=== PATIENT | female | born 2000 | race Caucasian/White ===

== ENCOUNTER 2023-02-04 09:04 | Emergency (ER) | payer OTHER, SELFPAY ==
--- NOTE | 2023-02-04 09:00 | RT.EKG_ITS ---
APPROVED REPORT Exam: Resting ECG Reason for Exam: chest pain Patient Location: E HR:79 bpm ECG Measurements Heart Rate 79 AXIS AL 128 P 59 QRSd 88 QRS 83 QT 365 T 68 QTc 420 Conclusion Sinus rhythm...normal P axis, V-rate 60- 99 Nonspecific T abnrm, anterolateral leads...T <-0.10mV, I aVL V2-V6
[2023-02-04 09:08] VITALS: BP 138/75; PULSE 98; RESP 18; TEMP 36.1; O2SAT 99
--- NOTE | 2023-02-04 09:19 | ED.GENADUL_ITS ---
Discharge Plan Disposition Patient Disposition: Home Condition: Stable Discharge Details Clinical Impression: Chest pain, COVID Primary Care Provider: Deedee Conway ED Provider: Bill Lam Home Meds and New Rx's Prescriptions: Continued prenat.vits,sylvia,[id number] Tablet 1 tab PO DAILY Discharge Instructions Instructions: Chest Pain (ED) Additional Instructions: Your blood work did not show concerning findings, you are positive for covid follow up with your primary care provider if pain continues and also continue routing obgyn visits if you feel more ill, have severe worsening pain or difficulty breathing return to the emergency department current cdc guidelines recommend isolating for 5 days if you are positive for covid without symptoms. Stand Alone Forms: Work Release Medical Decision Making 22 yo female g1 at approximately 6 weeks comes in with chief complaint of chest pressure and dyspnea since yesterday. Denies any fevers, chills, n/v, abdominal pain. She denies diaphoresis, radiation of pain and pain with exertion. She arrives stable speaking in full sentences in no distress. She has clear lungs, no murmurs, no leg swelling or calf tenderness. She does note she has history of anxiety and feels mildly anxious now. She denies smoking, alcohol or drug use, states quit everything a year ago, used to use marijuana but none recently. Suspect anxiety vs chest wall pain. No tachycardia, hypoxia or evidence of dvt on exam so doubt pe. No tearing back pain and normal periphreal vascular exam so doubt dissection. Will check troponin but heart score is 0 so unlikely acs. Clear lungs and no pleuritic pain so doubt ptx and no cough or fever so do not feel xray indicated. pt stable, blood work unremarkable including troponin and she's had symptoms more then 3 hours so do not feel delta troponin indicated. She is positive for covid, had it in November and she states she is fully vaccinated. Bedside u/s shows no ptx bilaterally and also reassuring cardiac u/s, no pericardial effusion, normal appearing EF. She is stable for d/c, advised to f/u with pcp/obgyn and return precautions given Differential Diagnosis Differential Diagnosis: anxiety, costochondritis, pe Lab Data Lab results reviewed: Yes I reviewed the patient's lab results. ECG Data Attestation: I personally reviewed and interpreted this ECG (s) as follows: Prior ECG tracings: not available for review Interpretation: sinus rythm, rate of 79, pr 128, no acute ischemic findings HPI General Mode of arrival: ambulatory . Date/Time Provider Initiated Documentation: 02/04/23 09:08 . Limitations to Documentation: no limitations . Information obtained by: patient . History of Present Illness 22 year old F presents to the emergency department with the chief complaint of shortness of breath, described as moderate, Patient started experiencing this day(s) (1) and it has been constant. No relieving factors improve symptom(s), No exacerbating factors reported . Patient notes chest pain. Patient did receive the following treatments prior to arrival, none Related Data Home Medications Medication Instructions Recorded Confirmed prenat.vits,sylvia,[id number] 1 tab PO DAILY 01/29/23 02/04/23 Allergies Allergy/AdvReac Type Severity Reaction Status Date / Time No Known Allergies Allergy Verified 02/04/23 09:10 General Stated Complaint: Chest Pain DIEGO: 3 Review of Systems All systems reviewed & are unremarkable except as noted in HPI and below Constitutional Constitutional: Denies chills, Denies fever(s) and Denies weakness ENT Ears, Nose, Mouth, and Throat: Denies change in voice Respiratory Respiratory: Denies cough Gastrointestinal Gastrointestinal: Denies abdominal pain, Denies nausea and Denies vomiting Genitourinary Genitourinary: Denies dysuria Musculoskeletal Musculoskeletal: Denies joint swelling Integumentary/Breasts Skin/Breast: Denies rash Neurologic Neurologic: Denies weakness PFSH All Active Problems (Updated 02/04/23 @ 10:43 by Bill Lam MD) Chest pain (Acute) COVID (Acute) (Acute) Anxiety (Chronic) Depression (Chronic) Missed menses (Acute) Medical History (Updated 02/04/23 @ 10:43 by Bill Lam MD) Eating disorder Social History (Updated 01/29/23 @ 15:08 by Kerry Mojica CNM) Smoking/Tobacco Use Status: Former Tobacco Use Smoking risk assessment performed?: Yes Alcohol Intake: former Substance use type: marijuana Do you feel safe at home: Yes Do you feel safe in your relationship?: Yes Exam Const General: no acute distress Orientation: alert HENMT Head: normal to inspection Ears: external ears normal General nose exam: external nose normal Mouth: moist mucous membranes Eyes General: appearance normal, both eyes and all related structures Neck Neck: normal visual inspection Resp Effort & Inspection: normal respiratory effort and able to speak in complete sentences Auscultation: clear to auscultation bilaterally Cardio Rate: regular rate Heart Sounds: no murmurs Skin General skin exam: no rashes or lesions noted Neuro General: patient alert and patient oriented x3 Extrem General: normal to inspection, full ROM, no calf tenderness bilaterally and no edema Psych Mental Status: mental status grossly normal Course Vital Signs Vital signs: Vital Signs Temperature 36.1 C L 02/04/23 09:08 Pulse 98 H 02/04/23 09:08 Respiratory Rate 18 02/04/23 09:08 Blood Pressure 138/75 02/04/23 09:08 Pulse Oximetry 99 02/04/23 09:08 Temperature 36.1 C L 02/04/23 09:08 Temperature Source Tympanic 02/04/23 09:08 Pulse 98 H 02/04/23 09:08 Respiratory Rate 18 02/04/23 09:08 Respiratory Effort Normal, Non-Labored 02/04/23 09:09 Blood Pressure 138/75 02/04/23 09:08 Pulse Oximetry 99 02/04/23 09:08 Oxygen Delivery Method Room Air 02/04/23 09:08 Oxygen Flow Rate 0 02/04/23 09:08 POCUS Exam (ED) Limited Cardiac Exam DATE OF EXAM: 02/04/23 TIME OF EXAM: 10:38 PROVIDER THAT PERFORMED THE STUDY: Bill Lam IS THIS A REPEAT EXAM DURING THIS ENCOUNTER: no REASON FOR EXAM: Chest pain VISUALIZED STRUCTURES: Four Chambers VIEW OBTAINED: Subxiphoid PERTINENT FINDINGS/IMPRESSION: No LV dysfunction, No pericardial effusion and No RV dilation Exam complete
[2023-02-04 09:40] LABS: Abs Immature Grans 0.02 10^3/uL (0.0-0.06); Absolute Basophil Count 0.03 10^3/uL (0.0-0.2); Absolute Eosinophil Count 0.07 10^3/uL (0.0-0.7); Absolute Lymphocyte Count 2.37 10^3/uL (1.2-3.4); Absolute Monocyte Count 0.74 10^3/uL (0.1-0.8); Absolute Neutrophil Count 5.71 10^3/uL (1.2-6.7); Basophils % 0.3; Eosinophils % 0.8; HCT 40.8 % (36.0-46.0); HGB 14.1 g/dL (11.2-15.7); Immature Grans % 0.2; Lymphocytes % 26.5; MCH 31.1 pg (27.0-33.0); MCHC 34.6 % (32.0-36.0); MCV 90 fL (80-95); MPV 8.8 fL (8.0-11.0); Monocytes % 8.3; Neutrophils % 63.9; Platelet Count 299 10^3/uL (130-400); RBC 4.54 10^6/uL (3.93-5.22); RDW 12.6 % (11.7-14.6); RDW-SD 41.5 fL; WBC 8.94 10^3/uL (4.4-10.8)
[2023-02-04 09:58] LABS: ALT 21 U/L (14-59); AST 18 U/L (15-37); Albumin 4.1 g/dL (3.4-5.0); Alkaline Phosphatase 85 U/L (46-116); Anion Gap 6.3 mmol/L (3-11); BUN 12 mg/dL (7-18); Bilirubin, Total 0.5 mg/dL (0.2-1.0); CO2 26.7 mmol/L (21.0-32.0); CREATININE 0.6 mg/dL (0.55-1.02); Calcium 8.8 mg/dL (8.5-10.1); Chloride 103 mmol/L (98-107); Estimated GFR 129.27 (mL/min/1.73m2); Glucose 89 mg/dL (74-106); Potassium 4.1 mmol/L (3.5-5.1); Sodium 136 mmol/L (136-145); Troponin I < 50 ng/L (<or=60)
[2023-02-04 10:17] LABS: Influenza A PCR Negative (Negative); Influenza B PCR Negative (Negative); RSV PCR Negative (Negative)
[2023-02-04 10:20] LABS: COVID-19 PCR Positive (Negative); Source Nasopharynx
[2023-02-04 10:45] VITALS: RESP 18
[2023-02-04 10:46] VITALS: BP 112/74; PULSE 92; RESP 18; O2SAT 98
== END 2023-02-04 10:46 | disposition home or self-care (01) ==
PROVIDERS: Emergency Provider Emergency Medicine; PCP Physician Assistant
DX: U07.1 COVID-19 (principal); R07.89 Other chest pain; R06.02 Shortness of breath
CPT/HCPCS: 80053; 87637; 93005; 93308; 99283; 84484; 85025; 93010

== ENCOUNTER 2023-03-12 01:23 | Outpatient (CLI) | payer OTHER, SELFPAY ==
[2023-03-12 17:14] LABS: Panorama Kit Sent via Fed Ex
[2023-03-12 17:33] LABS: Abs Immature Grans 0.08 10^3/uL (0.0-0.06); Absolute Eosinophil Count 0.07 10^3/uL (0.0-0.7); Absolute Lymphocyte Count 2.58 10^3/uL (1.2-3.4); Absolute Monocyte Count 0.94 10^3/uL (0.1-0.8); Absolute Neutrophil Count 10.71 10^3/uL (1.2-6.7); Basophils % 0.3; Eosinophils % 0.5; HCT 36.9 % (36.0-46.0); HGB 12.7 g/dL (11.2-15.7); Immature Grans % 0.6; Lymphocytes % 17.9; MCH 31.7 pg (27.0-33.0); MCHC 34.4 % (32.0-36.0); MCV 92 fL (80-95); MPV 9.4 fL (8.0-11.0); Monocytes % 6.5; Neutrophils % 74.2; Platelet Count 317 10^3/uL (130-400); RBC 4.01 10^6/uL (3.93-5.22); RDW 13.9 % (11.7-14.6); RDW-SD 47.4 fL; WBC 14.43 10^3/uL (4.4-10.8)
[2023-03-12 17:34] LABS: Absolute Basophil Count 0.04 10^3/uL (0.0-0.2)
[2023-03-14 09:39] LABS: Hepatitis B Surface Ag Negative (Negative)
[2023-03-14 10:07] LABS: HIV-1/2 Ag & Ab Screen Negative (Negative)
[2023-03-14 10:37] LABS: Hepatitis C Ab w Rflx HCV PCR Negative (Negative)
[2023-03-14 11:35] LABS: Varicella IgG Antibody Negative (See Note)
[2023-03-14 11:38] LABS: Rubella IgG Ab (UVM) Negative (See Note)
[2023-03-15 12:53] LABS: Syphilis IgG w/Reflex Nonreactive (Nonreactive)
== END 2023-03-12 01:24 | disposition home or self-care (01) ==
LOC: LBO 01:23
PROVIDERS: PCP Physician Assistant; Visit Provider Advanced Practice Midwife
DX: Z34.91 Encounter for supervision of normal pregnancy, unspecified, first trimester (principal); Z3A.11 11 weeks gestation of pregnancy
CPT/HCPCS: 36415; 86787; 86803; 86850; 86900; 86901; 87340; 87389; 85025; 86762; 86780

== ENCOUNTER 2023-03-12 16:27 | Outpatient (REF) | payer OTHER, SELFPAY ==
--- NOTE | 2023-03-12 15:30 | PAPFT_PTH ---
PATIENT: Florinda Leon LOC: [facility] U#:[id number] AGE/SX: 22/F ROOM: RE03/12/[address]: Kerry Mojica : 2000 BED: DIS: 03/12/2023 SPEC #: [id number] RECD: 03/12/23 18:12 STATUS: MARY BETH REQ #: [id number] VIVEK: 03/12/23 15:[address]: Kerry Mojica DEPT: [facility] Cytology RECD BY: Tonya Ramírez ENTERED: 03/12/23 18:12 SP TYPE: PAPFT OTHR DR: Deedee Conway Tissues: 1 - CX/ENDOCX FOR PAP SMEARS Procedures: PAP THIN PREP/UVM Screening Comments: [id number]
[2023-03-14 13:21] LABS: Chlamydia Result Negative (Negative); GC Result Negative (Negative)
== END 2023-03-12 16:28 | disposition home or self-care (01) ==
LOC: LBN 16:27
PROVIDERS: PCP Physician Assistant; Visit Provider Advanced Practice Midwife
DX: O26.891 Other specified pregnancy related conditions, first trimester (principal); N89.8 Other specified noninflammatory disorders of vagina; Z11.3 Encounter for screening for infections with a predominantly sexual mode of transmission; Z12.4 Encounter for screening for malignant neoplasm of cervix; Z3A.11 11 weeks gestation of pregnancy; R87.612 Low grade squamous intraepithelial lesion on cytologic smear of cervix (LGSIL)
CPT/HCPCS: 87491; 87591; 88142; 87086; 87480; 87510; 87660

== ENCOUNTER 2023-03-26 15:40 | Outpatient (REF) | payer OTHER, SELFPAY ==
[2023-03-28 13:44] LABS: Chlamydia Result Negative (Negative); GC Result Negative (Negative)
== END 2023-03-26 15:41 | disposition home or self-care (01) ==
LOC: LBN 15:40
PROVIDERS: PCP Physician Assistant; Visit Provider Advanced Practice Midwife
DX: Z34.91 Encounter for supervision of normal pregnancy, unspecified, first trimester (principal); Z3A.13 13 weeks gestation of pregnancy; Z11.3 Encounter for screening for infections with a predominantly sexual mode of transmission
CPT/HCPCS: 87491; 87591; 87480; 87510; 87660

== ENCOUNTER 2023-04-15 09:52 | Emergency (ER) | payer OTHER, SELFPAY ==
[2023-04-15 09:58] VITALS: BP 116/78; PULSE 80; RESP 18; TEMP 36.8; O2SAT 100
[2023-04-15] MEDS: Lactated Ringers 1,000 ML 1000 ML IV (10:23)
[2023-04-15] MEDS: Acetaminophen 325 MG TAB 650 MG PO (10:23)
[2023-04-15 10:34] LABS: Abs Immature Grans 0.07 10^3/uL (0.0-0.06); Absolute Eosinophil Count 0.19 10^3/uL (0.0-0.7); Absolute Neutrophil Count 11.78 10^3/uL (1.2-6.7); Basophils % 0.4; Eosinophils % 1.3; HGB 13.3 g/dL (11.2-15.7); Immature Grans % 0.5; Lymphocytes % 8.8; MCH 32.3 pg (27.0-33.0); MCHC 34.1 % (32.0-36.0); MCV 95 fL (80-95); MPV 9.5 fL (8.0-11.0); Monocytes % 6.3; Neutrophils % 82.7; Platelet Count 309 10^3/uL (130-400); RBC 4.12 10^6/uL (3.93-5.22); RDW 13.9 % (11.7-14.6); RDW-SD 48.2 fL; WBC 14.24 10^3/uL (4.4-10.8)
[2023-04-15 10:35] LABS: Bilirubin Negative (Negative); Blood Negative (Negative); Clarity Clear (Clear); Glucose Negative (Negative); Ketones Negative (Negative); Leukocyte Esterase Negative (Negative); Nitrite Negative (Negative); Specific Gravity 1.025 (1.005-1.025); Urobilinogen 0.2 mg/dL (Up to 0.2); pH 5.5 (5-8)
[2023-04-15 10:43] LABS: ALT 23 U/L (14-59); AST 22 U/L (15-37); Albumin 3.3 g/dL (3.4-5.0); Alkaline Phosphatase 69 U/L (46-116); Anion Gap 8.1 mmol/L (3-11); BUN 10 mg/dL (7-18); Bilirubin, Total 0.4 mg/dL (0.2-1.0); CO2 27.9 mmol/L (21.0-32.0); CREATININE 0.6 mg/dL (0.55-1.02); Calcium 8.7 mg/dL (8.5-10.1); Chloride 102 mmol/L (98-107); Estimated GFR 129.27 (mL/min/1.73m2); Glucose 89 mg/dL (74-106); Potassium 3.8 mmol/L (3.5-5.1); Sodium 138 mmol/L (136-145)
[2023-04-15 11:10] LABS: Absolute Basophil Count 0.06 10^3/uL (0.0-0.2); Absolute Lymphocyte Count 1.25 10^3/uL (1.2-3.4)
--- NOTE | 2023-04-15 11:36 | ED.GENADUL_ITS ---
Discharge Plan Disposition Patient Disposition: Home Discharge Details Clinical Impression: Acute left lower quadrant pain Primary Care Provider: Deedee Conway ED Provider: Tonya Benedict Home Meds and New Rx's Prescriptions: Continued prenat.vits,sylvia,[id number] Tablet 1 tab PO DAILY Discharge Instructions Instructions: Abdominal Pain (ED) Additional Instructions: Take Tylenol 500 to 650 mg every 6 hours, warm compresses Follow-up for ultrasound on Sunday Should you develop fever, chills, dramatic change or worsening of pain, please return to the emergency department for reassessment Please follow-up with your OB on Sunday Stand Alone Forms: Work Release Referrals: Deedee Conway [Primary Care Provider] - Medical Decision Making Patient presents for left lower quadrant abdominal pain in the presence of , 16 weeks heart rate 155 Urinalysis not show acute abnormality, patient not in significant distress White count of 14,000, unchanged from her February CBC Suspect round ligament pain, but unable to exclude other etiologies at this time, an ultrasound is not available on the therefore I did call [facility], Dr. Delgado, her recommendation is to order an outpatient ultrasound for Sunday and refer her back to [facility] for reassessment at that time We did discuss strict return precautions and need to return immediately should she develop worsening pain, fever, chills, or with any new or progressing symptoms She will take Tylenol and apply warm compresses Discharged home in stable condition with stable vitals, work note supplied for 3 days HPI General Date/Time Provider Initiated Documentation: 04/15/23 09:56 . HPI Narrative: This 22-year-old female presents 16 weeks with report of left lower quadrant pain since 7:00 last evening. Denies known trauma or vaginal bleeding. States she had an uneventful , she is G1, P0. Sexually active and monogamous, denies any risk of sexually transmitted disease. Denies any urinary symptoms. States her pain is worsened with movement of her left lower leg and walking. Denies history of abdominal surgeries in the past. Denies any vaginal discharge. Related Data Home Medications Medication Instructions Recorded Confirmed prenat.vits,sylvia,[id number] 1 tab PO DAILY 01/29/23 03/26/23 Allergies Allergy/AdvReac Type Severity Reaction Status Date / Time No Known Allergies Allergy Verified 04/10/23 10:10 General Stated Complaint: Abd Prob DIEGO: 3 PFSH All Active Problems (Updated 04/15/23 @ 11:38 by MELISSA Herron) Acute left lower quadrant pain (Acute) Threatened (Acute) LGSIL on Pap smear of cervix (Acute) Maternal varicella, non-immune (Acute) Rubella non-immune status, antepartum (Acute) Vaginal discharge (Acute) Tobacco dependence (Acute) vaping COVID (Acute) (Acute) Anxiety (Chronic) Depression (Chronic) venlafaxine Missed menses (Acute) Medical History (Updated 04/15/23 @ 11:38 by MELISSA Herron) Eating disorder Family History (Updated 03/12/23 @ 15:29 by Kerry Mojica CNM) Father Diabetes Enlarged liver Depression Sister Thyroid disease Social History (Updated 01/29/23 @ 15:08 by Kerry Mojica CNM) Smoking/Tobacco Use Status: Former Tobacco Use Smoking risk assessment performed?: Yes Alcohol Intake: former Drug use: Occasionally Substance use type: marijuana Do you feel safe at home: Yes Do you feel safe in your relationship?: Yes History History 2 1 Para Hx # Term Pregnancies 0 Multiple births Hx # Pregnancies Ectopic pregnancies AB induced Hx Number of Living Children 0 AB spontaneous Exam Narrative Exam Narrative: Patient calm and cooperative, lungs clear to auscultation, cardiac rate rhythm regular, tenderness to palpation in the left lower quadrant, just adjacent to her left hip bone, no pallor, alert and oriented x4, no peripheral edema Course Vital Signs Vital signs: Vital Signs Temperature 36.8 C 04/15/23 09:58 Pulse 80 04/15/23 09:58 Respiratory Rate 18 04/15/23 09:58 Blood Pressure 116/78 04/15/23 09:58 Pulse Oximetry 100 04/15/23 09:58 Temperature 36.8 C 04/15/23 09:58 Temperature Source Oral 04/15/23 09:58 Pulse 80 04/15/23 09:58 Respiratory Rate 18 04/15/23 09:58 Respiratory Effort Normal, Non-Labored 04/15/23 10:01 Blood Pressure 116/78 04/15/23 09:58 Pulse Oximetry 100 04/15/23 09:58 Pain Level 6 04/15/23 09:58 Lab/Test Results Lab/Test Results: Laboratory Tests Range/Units 04/15/23 04/15/23 04/15/23 10:09 10:20 10:20 WBC (4.4-10.8) 10^3/uL 14.24 H RBC (3.93-5.22) 10^6/uL 4.12 Hgb (11.2-15.7) g/dL 13.3 Hct (36.0-46.0) % 39.0 MCV (80-95) fL 95 MCH (27.0-33.0) pg 32.3 MCHC (32.0-36.0) % 34.1 RDW (11.7-14.6) % 13.9 Plt Count (130-400) 10^3/uL 309 MPV (8.0-11.0) fL 9.5 Immature Gran % 0.5 Neutrophils % 82.7 Lymphocytes % 8.8 Monocytes % 6.3 Eosinophils % 1.3 Basophils % 0.4 Nucleated RBC % (0.0-0.3) % 0.0 Absolute Neutrophils (1.2-6.7) 10^3/uL 11.78 H Absolute Lymphocytes (1.2-3.4) 10^3/uL 1.25 Absolute Monocytes (0.1-0.8) 10^3/uL 0.90 H Absolute Eosinophils (0.0-0.7) 10^3/uL 0.19 Absolute Basophils (0.0-0.2) 10^3/uL 0.06 Sodium (136-145) mmol/L 138 Potassium (3.5-5.1) mmol/L 3.8 Chloride (98-107) mmol/L 102 Carbon Dioxide (21.0-32.0) mmol/L 27.9 Anion Gap (3-11) mmol/L 8.1 BUN (7-18) mg/dL 10 Creatinine (0.55-1.02) mg/dL 0.6 Est GFR (CKD-EPI 2020) (mL/min/1.73m2) 129.27 Glucose (74-106) mg/dL 89 Calcium (8.5-10.1) mg/dL 8.7 Total Bilirubin (0.2-1.0) mg/dL 0.4 AST (15-37) U/L 22 ALT (14-59) U/L 23 Alkaline Phosphatase (46-116) U/L 69 Total Protein (6.4-8.2) g/dL 7.0 Albumin (3.4-5.0) g/dL 3.3 L Urine Color (Yellow) Yellow Urine Clarity (Clear) Clear Urine pH (5-8) 5.5 Ur Specific [place] (1.005-1.025) 1.025 Urine Protein (Negative) mg/dL Negative Urine Ketones (Negative) mg/dL Negative Urine Blood (Negative) Negative Urine Nitrite (Negative) Negative Urine Bilirubin (Negative) Negative Urine Urobilinogen (Up to 0.2) mg/dL 0.2 Ur Leukocyte Esterase (Negative) Negative Urine Glucose (Negative) mg/dL Negative
--- NOTE | 2023-04-15 12:36 | NUR.NOTE ---
Nursing Note:Faxed to DI request for US pelvic/OB: left lower quadrant pain. FOllow up w/OB. To be done April 17.
== END 2023-04-15 12:29 | disposition home or self-care (01) ==
PROVIDERS: Emergency Provider Physician Assistant; PCP Physician Assistant
DX: R10.32 Left lower quadrant pain (principal); Z33.1 Pregnant state, incidental
CPT/HCPCS: 80053; 96360; 99284; 81003; 85025; 99283

== ENCOUNTER 2023-04-19 03:28 | Outpatient (CLI) | payer OTHER, SELFPAY ==
--- NOTE | 2023-04-19 08:15 | DI.US_ITS ---
Exam(s) US OB ADONAY WEIGHT EXAM: US OB ADONAY WEIGHT CLINICAL HISTORY: follow up Ed visit for left lower quad pain,R10.32. TECHNIQUE: Transabdominal obstetrical ultrasound was performed. COMPARISON: US POCUS EXAM from 02/19/2023 FINDINGS: There is a single viable intrauterine gestation with cardiac activity identified-153 bpm The fetus is presently in variable position . Amniotic fluid: There is a normal amount of amniotic fluid with an ADONAY of 19.1cm. Placental location: The placenta is anterior grade 1,and is noted to be low lying placenta. Distance from tip of placenta to the internal cervical os is 0.7 cm on today's study. Dating parameters place this at approximately 17 weeks and 3 days gestational age, implying ANEAT of September 24, 2023. BPD measures 17 weeks and 3 days HC measures 17 weeks and 5 days AC measures 17 weeks and 6 days FL measures 16 weeks and 5 days Estimated weight is 190 gm-0 pounds, 7 ounces Fetus is at the 88th percentile on the Hadlock scale. MATERNAL OVARIES: Left ovary measures 2 x 1.5 x 2.2 cm and appears unremarkable. Right maternal ovar y was not seen on today's study. IMPRESSION:: Viable intrauterine gestation, as described above. Anterior placenta is low lying as described above. DATA REPOSITORY:
== END 2023-04-19 03:48 ==
LOC: DI 03:29
PROVIDERS: PCP Physician Assistant; Visit Provider Advanced Practice Midwife
DX: R10.32 Left lower quadrant pain (principal); Z34.92 Encounter for supervision of normal pregnancy, unspecified, second trimester
CPT/HCPCS: 76816

== ENCOUNTER 2023-05-10 12:52 | Outpatient (CLI) | payer OTHER, MEDICAID, SELFPAY ==
[2023-05-10 12:41] VITALS: BP 110/66; PULSE 77; RESP 18
[2023-05-10 12:42] VITALS: BP 110/66; PULSE 77; RESP 16; TEMP 37
== END 2023-05-10 13:15 | disposition home or self-care (01) ==
PROVIDERS: PCP Physician Assistant; Visit Provider Advanced Practice Midwife
DX: O34.32 Maternal care for cervical incompetence, second trimester (principal)
CPT/HCPCS: G0378

== ENCOUNTER 2023-05-13 21:22 | Outpatient (CLI) | payer OTHER, MEDICAID, SELFPAY ==
[2023-05-13 22:30] VITALS: BP 100/56; PULSE 61; TEMP 36.7
[2023-05-13 23:16] LABS: HCT 35.5 % (36.0-46.0); HGB 12.2 g/dL (11.2-15.7); MCH 33.2 pg (27.0-33.0); MCHC 34.4 % (32.0-36.0); MCV 97 fL (80-95); MPV 9.6 fL (8.0-11.0); Platelet Count 251 10^3/uL (130-400); RBC 3.68 10^6/uL (3.93-5.22); RDW 13.4 % (11.7-14.6); RDW-SD 47.9 fL; WBC 13.61 10^3/uL (4.4-10.8)
--- NOTE | 2023-05-14 02:40 | W.OBNST ---
Date of service: 05/14/23 Time of Service: 02:41 NST Evaluation Reason for NST Reasons for Nonstress Test: OTHER, SEE COMMENT (increased vaginal discharge after short cerclage 05/11/23.) Gestational Age Gestational Age in Weeks and Days: 19 Weeks and 4Days Vital Signs Blood Pressure: 100/56 Pulse: 61 Temperature: 98.1 F NST Information Date on Monitor: 05/13/23 Time on Monitor: 22:45 Date off Monitor: 05/13/23 Time off Monitor: 23:30 Total Time on Monitor: 45 NST Interventions: None Contraction Frequency: none Comments: Pt placed on monitor to assess FHR. No evidence of uterine contractions. NST Evaluation Patient States Movement: Present FHR Baseline: 150 NST Results Other: Gestational age too early for interpretation of FHR tracing. Note Ultrasound Done: N/A. NST Note Note: Pt called to report increased vaginal discharge beginning the morning of 05/13/23. Mucus w/o carolynn blood on peripad. No contractions, no focal pelvic pain. + Acetaminophen. On sterile speculum exam cervix closed. Cerclage stitch in place. Mucus collected and tested for ferning. Initial inspection of slide with copious WBC and w/o evidence of ferning. The specimen was reexamined 2hrs after initial inspection and ferning present. WBC 13.6. Pt had been discharged to home with instructions to f/u in office 05/15/23. She was given instructions regarding s/s of infection and to call office in event of gush of fluid or regular uterine contractions. NST Reviewed and Verified by: Valery Marin
[2023-05-14 02:53] VITALS: BP 100/56; PULSE 61; TEMP 36.7
== END 2023-05-13 23:20 | disposition home or self-care (01) ==
LOC: BCD 21:29 → OBS 21:41
PROVIDERS: PCP Physician Assistant; Visit Provider Obstetrics & Gynecology Gynecology
DX: O34.32 Maternal care for cervical incompetence, second trimester (principal); Z3A.19 19 weeks gestation of pregnancy
CPT/HCPCS: 36415; 85027; 59025; G0378

== ENCOUNTER 2023-06-07 14:19 | Outpatient (REF) | payer OTHER, SELFPAY | END 2023-06-07 14:20 | disposition home or self-care (01) | LOC: LBN 14:19 | PROVIDERS: PCP Physician Assistant; Visit Provider Advanced Practice Midwife | DX: O99.891 Other specified diseases and conditions complicating pregnancy (principal); N89.8 Other specified noninflammatory disorders of vagina; Z3A.00 Weeks of gestation of pregnancy not specified | CPT/HCPCS: 87086; 87480; 87510; 87660 ==

== ENCOUNTER 2023-07-13 01:32 | Outpatient (CLI) | payer OTHER, MEDICAID, SELFPAY ==
[2023-07-13 11:19] LABS: HCT 37.4 % (36.0-46.0); HGB 12.6 g/dL (11.2-15.7); MCH 32.8 pg (27.0-33.0); MCHC 33.7 % (32.0-36.0); MCV 97 fL (80-95); MPV 10.1 fL (8.0-11.0); Platelet Count 257 10^3/uL (130-400); RBC 3.84 10^6/uL (3.93-5.22); RDW 13.4 % (11.7-14.6); RDW-SD 47.4 fL; WBC 15.82 10^3/uL (4.4-10.8)
[2023-07-13 11:32] LABS: Glucose,1 Hr (Glucola) 114 mg/dL (80-140)
[2023-07-13 11:36] LABS: Absolute Eosinophil Count 0.16 10^3/uL (0.0-0.7); Absolute Lymphocyte Count 1.58 10^3/uL (1.2-3.4); Absolute Monocyte Count 1.27 10^3/uL (0.1-0.8); Absolute Neutrophil Count 12.34 10^3/uL (1.2-6.7); Atypical Lymphocytes % 1
[2023-07-13 11:37] LABS: Diff Comment Manual Differential; Metamyelocytes % 1; Myelocytes % 2; RBC Morphology Normal
== END 2023-07-13 01:33 | disposition home or self-care (01) ==
LOC: LBO 01:32
PROVIDERS: PCP Physician Assistant; Visit Provider Obstetrics & Gynecology
DX: Z34.93 Encounter for supervision of normal pregnancy, unspecified, third trimester (principal); Z3A.28 28 weeks gestation of pregnancy
CPT/HCPCS: 36415; 82950; 85025

== ENCOUNTER 2023-07-24 11:20 | Outpatient (CLI) | payer OTHER, MEDICAID, SELFPAY ==
[2023-07-24 11:50] VITALS: BP 117/64; PULSE 78; TEMP 36.2
[2023-07-24 11:54] VITALS: BP 117/64; PULSE 78
[2023-07-24 12:20] LABS: Bilirubin Negative (Negative); Blood Negative (Negative); Clarity Clear (Clear); Glucose Negative (Negative); Ketones Negative (Negative); Leukocyte Esterase Negative (Negative); Nitrite Negative (Negative); Urobilinogen 0.2 mg/dL (Up to 0.2); pH 6.5 (5-8)
[2023-07-24 12:49] LABS: Fetal Fibronectin Negative (Negative)
[2023-07-24] MEDS: Acetaminophen 325 MG TAB 650 MG PO (13:14)
[2023-07-24] MEDS: metroNIDAZOLE 500 MG TAB PO (14:50)
--- NOTE | 2023-07-24 16:37 | W.OBCONSULT ---
Date of service: 07/24/23 Time of Service: 16:37 Assessment and Plan Assessment and plan (1) contractions: Status: Acute Assessment and plan: Contractions decreased over >3hrs of observation. A heating pad and tylenol worked well for her back pain. She had +BV and was treated with a first dose of metronidazole and sent a script for the completion of the course. She was given strict instructions to call if she has increasing pain like that again because this could end up being labor and we would like to have time to send her to [facility] for delivery at this early gestation. Communication was made with GRABIEL Marquez at [facility], about her situation and the plan. (2) Cervical incompetence during in second trimester: Status: Acute Assessment and plan: Routine visit scheduled on Sunday with f/u sono for low-lying placenta. History of Present Illness Narrative: Pt says she has been having bad back pain for 3 days as well as some abdominal pains. There is no regular pattern to it. Today is worse. She is trying to stay hydrated. She has not done anything particularly strenuous. She is feeling good movement and denies bleeding or LOF. She does think she may have had an increase in discharge lately though. It is yellowish now instead of white. She says there is an odor but it's been that way for a while. She has slight discomfort with urination. Review of Systems Constitutional Constitutional: Reports system reviewed and no additional complaints, except as documented Gastrointestinal Gastrointestinal: Denies nausea and Denies vomiting Genitourinary Genitourinary: Reports system reviewed and no additional complaints, except as documented Musculoskeletal Comments: No regular contractions PFSH All Active Problems (Updated 07/24/23 @ 16:47 by Karen Gomez MD) contractions (Acute) Low lying placenta, antepartum (Acute) Depression (Chronic) venlafaxine Anxiety (Chronic) (Acute) Tobacco dependence (Acute) vaping Rubella non-immune status, antepartum (Acute) Maternal varicella, non-immune (Acute) LGSIL on Pap smear of cervix (Acute) Cervical incompetence during in second trimester (Acute) Medical History (Updated 07/24/23 @ 16:47 by Karen Gomez MD) Eating disorder Threatened Vaginal discharge Family History (Updated 03/12/23 @ 15:29 by Kerry Mojica CNM) Father Diabetes Enlarged liver Depression Sister Thyroid disease Social History (Updated 06/12/23 @ 13:01 by Nora Suggs) Smoking/Tobacco Use Status: Former Tobacco Use Smoking risk assessment performed?: Yes Alcohol Intake: former Drug use: Occasionally Substance use type: marijuana Adopted: No Caregiver/Support person: No Foster care: No Household members: significant other Housing: apartment Number of Children: 1 Communication Needs: None Education Level: high school Do you need help understanding health information?: Rarely current occupation: None Pets and animals: No Sexually active: Yes Do you think of yourself as: straight/heterosexual Current gender identity: female What is your relationship status?: living with partner How often do you talk on the phone with friends or family?: three or more times per week How often do you get together with friends or relatives?: three or more times per week Do you belong to any clubs or organized social groups?: no Panel score (0-1 are the most socially isolated patients): 2 What type of physical activity do you participate in: none Sally/Presybeterian: None Special sally needs: No Seatbelt use: always Helmet use: Yes Helmet use: always Drive intox or ride w/intox vibratory pile driver: No Do you feel safe at home: Yes Do you feel safe in your relationship?: Yes History History 1 Para 0 Hx # Term Pregnancies 0 Multiple births 0 Hx # Pregnancies 0 Ectopic pregnancies 0 AB induced 0 Hx Number of Living Children 0 AB spontaneous 0 Exam Narrative Exam Narrative: Mild distress with stronger contractions HENMT Head: normocephalic and atraumatic Resp Effort & Inspection: normal respiratory effort and able to speak in complete sentences GI Other: Gravid, nontender abdomen. Unable to clearly palpate strong contractions. External Female Exam: normal external appearance Speculum Exam - Vagina: normal appearance of the vagina (white/yellow vaginal discharge) Speculum Exam - Cervix: other (cerclage knot noted. No obvious cervical dilation. No blood noted.) Manual OB Exam: other (No clear dilation or ballooning of cervix) Other: FFN and vag path swab collected. Back/Spine/Pelvis Other: diver tender to palpation particularly the lower back and the right side in the paraspinal area. Results Last Vital Signs Pulse 78 07/24/23 11:54 BP 117/64 07/24/23 11:54 Labs Labs: Laboratory Results - last 24 hr 07/24/23 07/24/23 11:45 12:12 Urine Color Yellow Urine Clarity Clear Urine pH 6.5 Ur Specific [place] 1.010 Urine Protein Negative Urine Ketones Negative Urine Blood Negative Urine Nitrite Negative Urine Bilirubin Negative Urine Urobilinogen 0.2 Ur Leukocyte Esterase Negative Urine Glucose Negative Fibronectin Negative Vag path: +BV. Neg yeast/trich. FFN neg.
== END 2023-07-24 16:54 | disposition home or self-care (01) ==
LOC: BCD 11:25 → OBS 11:44
PROVIDERS: PCP Physician Assistant; Visit Provider Obstetrics & Gynecology
DX: O47.00 False labor before 37 completed weeks of gestation, unspecified trimester (principal); O34.32 Maternal care for cervical incompetence, second trimester
CPT/HCPCS: 59025; 81003; 82731; 87480; 87510; 87660; G0378

== ENCOUNTER 2023-07-26 04:39 | Observation (INO) | payer OTHER, MEDICAID, SELFPAY ==
[2023-07-26 02:31] VITALS: BP 107/67; PULSE 71
[2023-07-26 02:46] VITALS: BP 107/67; PULSE 71; RESP 18; TEMP 36.6
[2023-07-26 03:13] VITALS: BP 107/67; PULSE 71; TEMP 208.2; TEMP 97.9
--- NOTE | 2023-07-26 04:31 | W.PM.OBHPL1 ---
Date of service: 07/26/23 Time of Service: 04:31 Assessment and Plan Assessment and plan (1) Rubella non-immune status, antepartum: Status: Acute (2) Maternal varicella, non-immune: Status: Acute (3) Cervical incompetence during in second trimester: Status: Acute Assessment and plan: Currently the lower uterine segment is well-developed no evidence of cervical length. Cerclage is in place. (4) contractions: Status: Acute Assessment and plan: Patient will receive dose of nifedipine 10 mg and begin magnesium sulfate infusion along with initial dose of betamethasone. She has been accepted in transfer to [facility]. (5) Cervical cerclage suture present: Status: Acute OB-HPI Labor/Delivery History of Present Illness Reason for Visit: NST Chief Complaint: Uterine Contractions. ANETA Calculator Estimated Delivery Date Method Current WG Current Estimate 09/30/23 LMP (Certain) 30w 4d Other Estimates 09/29/23 Ultrasound #1 30w 5d History of Present Expected Delivery Route/Plan - (cerclage), YOLAM @ 37 wks on FOB - Nasir Rocha Interested in waterbirth Rubella & varicella non-immune - offer vaccines Specific Issues/Plan 1. Vaping tobacco, trying to cut down - quit?? 2. Covid vaccinated - Covid infection 11/2022 3. History of anxiety and depression- sees a therapist regularly. 4. First trimester bleeding - normal US at [facility] 5. Pap LGSIL will need repeat in 1 yr per [facility], plan PAP at 6 wk PP visit 6. Panorama, CF and AFP declined 7. Low lying placenta - repeat US at 28 weeks 8. At 16 wks c/o LLQ pain, to ED- Scan shows nml left ovary, symptoms resolved. 9. Cervical insufficiency: Incidental finding on anatomy scan at 19 wks:cervical funneling with only 5mm of closed cervix -Rescue cerclage placed @[facility] (05/11/23). 05/18/23 f/u: Increased cervical discharge. Nl ADONAY -Repeat sono 06/07/23: no concerns with cerclage Narrative: Patient is currently 30 W4D EGA who reports 4 hours of painful regular contractions beginning in her lower lumbar region and radiating to her abdomen. She denies rupture membranes or vaginal bleeding. She reports good movement. Patient was evaluated on the center 07/24/2023 with similar complaints her contractions subsided after approximately 3 hours of observation. Cervix at that time was closed and cervical cerclage in place. It was not clear on the previous vaginal exam if the lower uterine segment was well-developed or any cervical length was present. Informed Consent Informed Consent: Other (Transferred to [facility] via ambulance) Review of Systems All systems reviewed & are unremarkable except as noted in HPI and below PFSH All Active Problems (Updated 07/26/23 @ 04:58 by Valery Marin MD) Cervical cerclage suture present (Acute) Depression (Chronic) venlafaxine Anxiety (Chronic) (Acute) Tobacco dependence (Acute) vaping Rubella non-immune status, antepartum (Acute) Maternal varicella, non-immune (Acute) LGSIL on Pap smear of cervix (Acute) Cervical incompetence during in second trimester (Acute) Low lying placenta, antepartum (Acute) contractions (Acute) Medical History (Updated 07/26/23 @ 04:58 by Valery Marin MD) Eating disorder Threatened Vaginal discharge Family History (Updated 03/12/23 @ 15:29 by Kerry Mojica CNM) Father Diabetes Enlarged liver Depression Sister Thyroid disease Social History (Updated 06/12/23 @ 13:01 by Nora Suggs) Smoking/Tobacco Use Status: Former Tobacco Use Smoking risk assessment performed?: Yes Alcohol Intake: former Drug use: Occasionally Substance use type: marijuana Adopted: No Caregiver/Support person: No Foster care: No Household members: significant other Housing: apartment Number of Children: 1 Communication Needs: None Education Level: high school Do you need help understanding health information?: Rarely current occupation: None Pets and animals: No Sexually active: Yes Do you think of yourself as: straight/heterosexual Current gender identity: female What is your relationship status?: living with partner How often do you talk on the phone with friends or family?: three or more times per week How often do you get together with friends or relatives?: three or more times per week Do you belong to any clubs or organized social groups?: no Panel score (0-1 are the most socially isolated patients): 2 What type of physical activity do you participate in: none Sally/Bahai: None Special sally needs: No Seatbelt use: always Helmet use: Yes Helmet use: always Drive intox or ride w/intox school boat driver: No Do you feel safe at home: Yes Do you feel safe in your relationship?: Yes History History 1 Para 0 Hx # Term Pregnancies 0 Multiple births 0 Hx # Pregnancies 0 Ectopic pregnancies 0 AB induced 0 Hx Number of Living Children 0 AB spontaneous 0 Meds Allergies and Home Medications Allergies Allergy/AdvReac Type Severity Reaction Status Date / Time No Known Allergies Allergy Verified 07/13/23 09:56 Home Medications Medication Instructions Recorded Confirmed Type potassium citrate 99 mg capsule mg PO 05/10/23 07/13/23 History polyethylene glycol 3350 17 17 g PO DAILY 06/07/23 07/13/23 History gram/dose oral powder (Miralax) vitamin #56-iron 35 mg 1 cap PO DAILY #90 caps 06/26/23 07/13/23 Rx and 5 mg-folic acid 1 mg-dha capsule metronidazole 500 mg tablet 500 mg PO BID #13 tabs 07/24/23 Rx Exam Physical Exam Vital signs: Temp Pulse Resp BP 97.9 F 71 18 107/67 07/26/23 02:46 07/26/23 02:46 07/26/23 02:46 07/26/23 02:46 Vital Signs Reviewed: Yes Constitutional Constitutional: mild distress Detailed Labor and Delivery Exam Dilation: 0 Effacement (%): 100 station: -1 Alcantara Score: Cervical Points Exam 0 1 2 3 Dilation Closed 1-2cm 3-4 cm 5-6cm Effacement 0-30% 40-50% 60-70% 80% Consistency Firm Medium Soft Station -3 -2 -1,0 +1,+2 Position Posterior Mid Anterior Amniotic Membrane Status: Intact Amniotic Fluid: Clear Contraction Frequency(min): 3-4 Contraction Duration(sec): 50-60 Contraction Intensity: Mild Fetus A Heart Rate Baseline: 125 Monitor Accelerations: 15 X 15 Monitor Decelerations: None Variability: Moderate (6-25 BPM) Presentation: Cephalic Categories: Category I Est. Weight: 3 lb 8.438 oz HEENT Exam HEENT Exam: Normal Neck Exam Neck Exam: Normal Chest/Brest/Axilla Exam Chest Exam: Normal Breast Exam Breast Exam: Not Done Respiratory Exam Respiratory Exam: Normal Cardiovascular Exam Cardiovascular Exam: Normal Abdominal Exam Abdominal Exam: Normal (Focal tenderness left lower quadrant) Rectal Exam Rectal Exam: Not Done Exam Exam: Normal (GBS RV CX obtained) Extremities Exam Extremities Exam: Normal Back/Spine/Pelvis Exam Back Exam: Normal (No CVA tenderness) Pelvis Adequate: Yes Skin Exam Skin Exam: Normal Neurological Exam Neurological Exam: Normal Psychiatric Exam Psychiatric Exam: Normal (Anxious secondary to discomfort) Results Results Group Beta Strep: N/A (Obtained will be sent with patient to [facility]) Blood Type: O+ Rubella Status: Nonimmune Varicella Immunity: Nonimmune Risk Assessment Risk for Shoulder Dystocia Historical/Initial OB: NEGATIVE FOR: Pelvic Abnormality, Pre- BMI>30, Previous Shoulder Dystocia or Previous Macrosomia Risk for Pre-Eclampsia Date Initiated/Initials: 03/12/23 Yes, if one or more: NEGATIVE FOR: Hx Pre-E/Gest HTN, Chronic HTN, Multiple Gestation, Pre-gestational DM, Renal Disease, Systemic Lupus or APA Syndrome Yes, if 2 or more: POSITIVE FOR: Nulliparity; NEGATIVE FOR: Age>= 35 yrs, >10yr btwn pregnancies, BMI>30, ethinicty, Mother/Sister w/ Pre-E or Previous IUGR Risk for Post- Hemorrhage Initial: NEGATIVE FOR: Multiple Gestation, Previous PPH, Known Clotting Deficiency, Grand Multiparity or Anticoagulation Risks Reviewed Risks Reviewed Upon Admission: Yes
[2023-07-26] MEDS: NIFEdipine 10 MG CAP PO (04:45)
[2023-07-26] MEDS: Betamet Acet/Betamet Na Ph Inj. 30 MG/5 ML 12 MG IM (05:00)
[2023-07-26 05:06] VITALS: BP 110/63; PULSE 78
[2023-07-26 05:11] LABS: HCT 35.8 % (36.0-46.0); HGB 12.2 g/dL (11.2-15.7); MCH 33.2 pg (27.0-33.0); MCHC 34.1 % (32.0-36.0); MCV 98 fL (80-95); MPV 10.2 fL (8.0-11.0); Platelet Count 264 10^3/uL (130-400); RBC 3.67 10^6/uL (3.93-5.22); RDW 13.6 % (11.7-14.6); RDW-SD 48.8 fL; WBC 16.87 10^3/uL (4.4-10.8)
--- NOTE | 2023-07-26 08:57 | W.OBNST ---
Date of service: 07/26/23 Time of Service: 09:09 NST Evaluation Reason for NST Reasons for Nonstress Test: LABOR Gestational Age Gestational Age in Weeks and Days: 30 Weeks and 5Days Test and Monitor Explained Test/Monitor Explained: Test Explained and Patient Verbalized Understanding Vital Signs Blood Pressure: 107/67 Pulse: 71 Temperature: 208.2 F Urine Results Urine Protein: Negative Urine Ketones: Negative Urine Glucose: Negative Urine Blood: Negative NST Information Date on Monitor: 07/26/23 Time on Monitor: 02: Date off Monitor: 07/26/23 NST Interventions: PO Hydration NST Evaluation Patient States Movement: Present FHR Baseline: 120 Variability: Moderate 6-25 bpm Accelerations: 15x15 Decelerations: None NST Results: Reactive Note Ultrasound Done: N/A. NST Note Note: pt admitted and transfered [place] [facility] with contractions with cerclage in place. NST Reviewed and Verified by: Valery Marin
[2023-07-26 09:09] VITALS: BP 107/67; PULSE 71; TEMP 208.2; TEMP 97.9
--- NOTE | 2023-07-26 15:44 | W.PM.DS.N ---
Date of service: 07/26/23 Time of Service: 15:44 DS: Diagnosis Discharge Diagnosis (1) Rubella non-immune status, antepartum: Status: Acute (2) Maternal varicella, non-immune: Status: Acute (3) Cervical incompetence during in second trimester: Status: Acute (4) contractions: Status: Acute (5) Cervical cerclage suture present: Status: Acute Discharge Plan Disposition Patient Disposition: Transfer-Acute Inpatient Care Specific Acute Inpt Facility: [facility] Condition: Fair Discharge Details Reason For Visit: 30W4D, EGA, cervical cerclage, uterine contraction Admit Date/Time: 07/26/23 04:39 Admit Provider: Valery Marin Attending Provider: Valery Marin Primary Care Provider: Deedee Conway Hospital Course Hospital Course: Patient is currently 30 W4D EGA who reports 4 hours of painful regular contractions beginning in her lower lumbar region and radiating to her abdomen.? She denies rupture membranes or vaginal bleeding.? She reports good movement.? Patient was evaluated on the center 07/24/2023 with similar complaints her contractions subsided after approximately 3 hours of observation.? Cervix at that time was closed and cervical cerclage in place.? Pt was observed on BC and continued to have painful regular contractions. [facility] [place] [place] [facility] was consulted and agreed to accept the pt in transfer via ambulance. Prior to transport she had a GBS obtained and was transported with her. She was given Nifedipine 10mg po and Magnesium Sulfate infusion started. Lastly she received her initial dose of Betamethasone. Home Meds and New Rx's Prescriptions: No Action polyethylene glycol 3350 [Miralax] 17 gram/dose powder 17 g PO DAILY potassium citrate 99 mg capsule PO PNV #[id number] acid-dha 35 mg iron-5 mg iron-1 mg capsule 1 cap PO DAILY Qty: 90 3RF metronidazole 500 mg tablet 500 mg PO BID Qty: 13 0RF Discharge Instructions Activity:: Activity as Tolerated Equipment/Supplies:: No Equipment Needed Diet:: As Tolerated Discharge Orders Discharge Orders: Discharge Order (Routine); Ordered 07/26/23 Ordered By: Valery Marin Discharge Data Discharge Date/Time-TO BE ENTERED AT DEPARTURE: 07/26/23 06:30 Discharge Comment: to [facility] [place] DS: Summary Time Spent with Patient providing and/or coordinating discharge services: Greater than 30 minutes Specific discharge activities: Dictating history and physical arranging paperwork for transport to [facility] [place] [place] Status at Discharge Functional status at discharge: bed bound Overall status at discharge: patient is not back to baseline Mental Status: mental status grossly normal Speech and Movement: speech and movement normal Mood: anxious mood Affect: normal affect Exam Const General: no acute distress Nutritional Appearance: average body habitus Orientation: alert, awake and oriented x3 Resp Effort & Inspection: normal respiratory effort Auscultation: clear to auscultation bilaterally Cardio Rate: regular rate Rhythm: regular rhythm GI Inspection: normal to inspection (gravid. ) Palpation: other (focal uterine tenderness LLQ of uterus.) Rectal Exam - female: deferred Manual OB Exam: dilated fingertip, effaced 75%, station -1 and other (cerclage intact. MELODY well developed.) Amniotic Fluid: no fluid Back/Spine/Pelvis Back: no CVA tenderness Skin General skin exam: no rashes or lesions noted Neuro Cognition: normal cognition Speech: speech normal Gait: normal gait Motor: muscle tone normal throughout Extrem General: normal to inspection Psych Appearance: grossly normal Mental Status: mental status grossly normal Speech and Movement: speech and movement normal Mood: anxious mood Affect: normal affect DS: Data Vitals/I&O Vitals and I&O: Vital Signs Temperature 97.9 F 07/26/23 02:46 Temperature 208.2 F 07/26/23 09:09 Temperature Source Tympanic 07/26/23 02:46 Pulse 78 07/26/23 05:06 Pulse 71 07/26/23 09:09 Respiratory Rate 18 07/26/23 02:46 Blood Pressure 110/63 07/26/23 05:06 Blood Pressure 107/67 07/26/23 09:09 Oxygen Delivery Method Room Air 07/26/23 02:46 Oxygen Flow Rate 0 07/26/23 02:46 Pain Level 3 07/26/23 02:46 Intake & Output 07/25/23 07/26/23 07/26/23 23:59 11:59 23:59 Output Total 300 / 300 Balance -300 / -300 Output: Urine 300 / 300 Other: Urine Color Pale Urine Appearance Clear Urine Odor None Voiding Methods Toilet Data Completed and Pending Labs on day of discharge: Labs from last 24 hours 07/26/23 07/26/23 05:03 05:03 WBC 16.87 H RBC 3.67 L Hgb 12.2 Hct 35.8 L MCV 98 H MCH 33.2 H MCHC 34.1 RDW 13.6 Plt Count 264 MPV 10.2 Patient ABO/Rh O Positive Antibody Screen NEGATIVE 07/26/23 04:42 Perirectal Group B Streptococcus Culture - Pending Preliminary micro results at discharge 07/26/23 04:42 Group B Streptococcus Culture - Pending Perirectal PFSH All Active Problems (Updated 07/26/23 @ 04:58 by Valery Marin MD) Cervical cerclage suture present (Acute) Depression (Chronic) venlafaxine Anxiety (Chronic) (Acute) Tobacco dependence (Acute) vaping Rubella non-immune status, antepartum (Acute) Maternal varicella, non-immune (Acute) LGSIL on Pap smear of cervix (Acute) Cervical incompetence during in second trimester (Acute) Low lying placenta, antepartum (Acute) contractions (Acute) Medical History (Updated 07/26/23 @ 04:58 by Valery Marin MD) Eating disorder Threatened Vaginal discharge Family History (Updated 03/12/23 @ 15:29 by Kerry Mojica CNM) Father Diabetes Enlarged liver Depression Sister Thyroid disease Social History (Updated 06/12/23 @ 13:01 by Nora Suggs) Smoking/Tobacco Use Status: Former Tobacco Use Smoking risk assessment performed?: Yes Alcohol Intake: former Drug use: Occasionally Substance use type: marijuana Adopted: No Caregiver/Support person: No Foster care: No Household members: significant other Housing: apartment Number of Children: 1 Communication Needs: None Education Level: high school Do you need help understanding health information?: Rarely current occupation: None Pets and animals: No Sexually active: Yes Do you think of yourself as: straight/heterosexual Current gender identity: female What is your relationship status?: living with partner How often do you talk on the phone with friends or family?: three or more times per week How often do you get together with friends or relatives?: three or more times per week Do you belong to any clubs or organized social groups?: no Panel score (0-1 are the most socially isolated patients): 2 What type of physical activity do you participate in: none Sally/Pentecostalism: None Special sally needs: No Seatbelt use: always Helmet use: Yes Helmet use: always Drive intox or ride w/intox local flatbed driver: No Do you feel safe at home: Yes Do you feel safe in your relationship?: Yes History History 1 Para 0 Hx # Term Pregnancies 0 Multiple births 0 Hx # Pregnancies 0 Ectopic pregnancies 0 AB induced 0 Hx Number of Living Children 0 AB spontaneous 0 Time Spent with Patient Time Spent with Patient: <45 minutes Time was spent: preparing to see the patient(eg.review tests), obtaining and/or reviewing separately otained hiistory and ordering medications,tests, procedures
== END 2023-07-26 06:30 | disposition short-term general hospital (02) ==
LOC: OBS 05:56 → BCD 07:43
PROVIDERS: Admitting Provider Obstetrics & Gynecology Gynecology; PCP Physician Assistant; Visit Provider Obstetrics & Gynecology Gynecology
DX: O34.33 Maternal care for cervical incompetence, third trimester; O44.43 Low lying placenta NOS or without hemorrhage, third trimester; O60.03 Preterm labor without delivery, third trimester; Z28.39 Other underimmunization status; Z3A.30 30 weeks gestation of pregnancy; O99.333 Smoking (tobacco) complicating pregnancy, third trimester; F17.290 Nicotine dependence, other tobacco product, uncomplicated; O99.343 Other mental disorders complicating pregnancy, third trimester; F41.8 Other specified anxiety disorders
CPT/HCPCS: 36415; 85027; 86850; 86900; 86901; 96372; 59025; 87081; G0378; J0702; J3475; J3490

== ENCOUNTER 2023-08-09 12:04 | Outpatient (CLI) | payer OTHER, MEDICAID, SELFPAY ==
[2023-08-09 12:19] VITALS: BP 118/62; PULSE 77; TEMP 37.1
[2023-08-09 12:22] VITALS: BP 118/62; PULSE 77
--- NOTE | 2023-08-09 12:43 | W.PM.OBHPL1 ---
Date of service: 08/09/23 Time of Service: 12:44 Assessment and Plan Assessment and plan (1) contractions: Status: Acute Assessment and plan: Due to increasing pressure and increased contractions will plan on transfer [place] [facility] D/w Dr. Pimentel and charge nurse there and pt accepted. Will give rescue course of betamethasone as it has been 2wks since prior dose. Will give dose of nifedipine for transfer. OB-HPI Labor/Delivery History of Present Illness Reason for Visit: NST Chief Complaint: Uterine Contractions. ANETA Calculator Estimated Delivery Date Method Current WG Current Estimate 09/30/23 LMP (Certain) 32w 4d Other Estimates 09/29/23 Ultrasound #1 32w 5d History of Present Expected Delivery Route/Plan - MD (cerclage). Plan CNM care after 37w EGA. [facility] - Nasir Rocha Interested in waterbirth Rubella & varicella non-immune - offer vaccines Specific Issues/Plan 1. Vaping tobacco, trying to cut down - mostly just uses when around her boyfriend/family 2. Covid vaccinated - Covid infection 11/2022 3. History of anxiety and depression- sees a therapist regularly. 4. First trimester bleeding - normal US at [facility] 5. Pap LGSIL will need repeat in 1 yr per [facility], plan PAP at 6 wk PP visit 6. Panorama, CF and AFP declined 7. Low lying placenta - repeat US at 28 weeks 8. At 16 wks c/o LLQ pain, to ED- Scan shows nml left ovary, symptoms resolved. 9. Cervical insufficiency: Incidental finding on anatomy scan at 19 wks:cervical funneling with only 5mm of closed cervix -[place]cue cerclage [place] [place] 05/18/23 f/u: Increased cervical discharge. Nl ADONAY. 06/07/23: no concerns with cerclage -07/26/23 Cerclage removed at [facility] 2/2 contractions. 3cm dilated at the time. Steroid complete. Stopped contractions and discharged undelivered 31w2d EGA. Narrative: Pt says she has not felt great since yesterday. She is feeling more pelvic pressure. She initially denied contractions but then admits to tightening of her belly and says she is uncertain how to tell james-fowler from regular contractions. She particularly feels increased pressure with being on her feet. Good movement. No bleeding. Review of Systems Constitutional Constitutional: Reports system reviewed and no additional complaints, except as documented Gastrointestinal Gastrointestinal: Denies nausea and Denies vomiting Genitourinary Genitourinary: Reports system reviewed and no additional complaints, except as documented PFSH All Active Problems (Updated 08/09/23 @ 12:55 by Karen Gomez MD) contractions (Acute) Depression (Chronic) venlafaxine Anxiety (Chronic) (Acute) Tobacco dependence (Acute) vaping Rubella non-immune status, antepartum (Acute) Maternal varicella, non-immune (Acute) LGSIL on Pap smear of cervix (Acute) Cervical incompetence during in second trimester (Acute) Medical History (Updated 08/09/23 @ 12:55 by Karen Gomez MD) Cervical cerclage suture present [place] 07/26/23 [place] 3cm dilated - observed x5 days with no cervical change, then d/c home Eating disorder Low lying placenta, antepartum Family History (Updated 03/12/23 @ 15:29 by Kerry Mojica CNM) Father Diabetes Enlarged liver Depression Sister Thyroid disease Social History (Updated 06/12/23 @ 13:01 by Nora Suggs) Smoking/Tobacco Use Status: Former Tobacco Use Smoking risk assessment performed?: Yes Alcohol Intake: former Drug use: Occasionally Substance use type: marijuana Adopted: No Caregiver/Support person: No Foster care: No Household members: significant other Housing: apartment Number of Children: 1 Communication Needs: None Education Level: high school Do you need help understanding health information?: Rarely current occupation: None Pets and animals: No Sexually active: Yes Do you think of yourself as: straight/heterosexual Current gender identity: female What is your relationship status?: living with partner How often do you talk on the phone with friends or family?: three or more times per week How often do you get together with friends or relatives?: three or more times per week Do you belong to any clubs or organized social groups?: no Panel score (0-1 are the most socially isolated patients): 2 What type of physical activity do you participate in: none Sally/Sabianism: None Special sally needs: No Seatbelt use: always Helmet use: Yes Helmet use: always Drive intox or ride w/intox road train driver: No Do you feel safe at home: Yes Do you feel safe in your relationship?: Yes History History 1 Para 0 Hx # Term Pregnancies 0 Multiple births 0 Hx # Pregnancies 0 Ectopic pregnancies 0 AB induced 0 Hx Number of Living Children 0 AB spontaneous 0 Meds Allergies and Home Medications Allergies Allergy/AdvReac Type Severity Reaction Status Date / Time No Known Allergies Allergy Verified 08/09/23 11:43 Home Medications Medication Instructions Recorded Confirmed Type polyethylene glycol 3350 17 17 g PO DAILY 06/07/23 07/13/23 History gram/dose oral powder (Miralax) vitamin #56-iron 35 mg 1 cap PO DAILY #90 caps 06/26/23 07/13/23 Rx and 5 mg-folic acid 1 mg-dha capsule Exam Physical Exam Vital signs: Pulse BP 77 118/62 08/09/23 12:22 08/09/23 12:22 Vital Signs Reviewed: Yes Detailed Labor and Delivery Exam Dilation: 3 Effacement (%): 100 station: 0 Alcantara Score: Cervical Points Exam 0 1 2 3 Dilation Closed 1-2cm 3-4 cm 5-6cm Effacement 0-30% 40-50% 60-70% 80% Consistency Firm Medium Soft Station -3 -2 -1,0 +1,+2 Position Posterior Mid Anterior Contraction Frequency(min): 1-3 Contraction Duration(sec): 30-60 Comments: Cervical exam done in office by Dr. Delgado. Presenting part very low in the pelvis. Fetus A Heart Rate Baseline: 140 Monitor Accelerations: Present Monitor Decelerations: None Variability: Moderate (6-25 BPM) Categories: Category I Detailed HEENT Exam Head: Present normocephalic and atraumatic Detailed Abdominal Exam Comments: gravid, mildly tender to palpation. Contractions palpable. Detailed Neurological Exam Neurological: Present alert, oriented X3 and CN II-XII intact DetailedPsychiatric Exam Psychiatric: Present normal affect, normal thought process and cooperative Results Results Group Beta Strep: Negative (per [facility] [facility] at [facility] today) Blood Type: O+ Rubella Status: Nonimmune Varicella Immunity: Nonimmune Risk Assessment Risk for Shoulder Dystocia Historical/Initial OB: NEGATIVE FOR: Pelvic Abnormality, Pre- BMI>30, Previous Shoulder Dystocia or Previous Macrosomia Risk for Pre-Eclampsia Date Initiated/Initials: KM 03/12/23 Yes, if one or more: NEGATIVE FOR: Hx Pre-E/Gest HTN, Chronic HTN, Multiple Gestation, Pre-gestational DM, Renal Disease, Systemic Lupus or APA Syndrome Yes, if 2 or more: POSITIVE FOR: Nulliparity; NEGATIVE FOR: Age>= 35 yrs, >10yr btwn pregnancies, BMI>30, ethinicty, Mother/Sister w/ Pre-E or Previous IUGR Risk for Post- Hemorrhage Initial: NEGATIVE FOR: Multiple Gestation, Previous PPH, Known Clotting Deficiency, Grand Multiparity or Anticoagulation Risks Reviewed Risks Reviewed Upon Admission: Yes WW Pocus Exam Exam testing Date/Time of Exam: Date of exam: 08/09/2023 Time of exam: 12:52 pm ANETA Calculator Estimated Delivery Date Method Current WG Current Estimate 09/30/23 LMP (Certain) 32w 4d Other Estimates 09/29/23 Ultrasound #1 32w 5d position Gestational age (weeks): 32 Presentation: Vertex Coding for Transabdominal exam: Complete exam
[2023-08-09] MEDS: NIFEdipine 10 MG CAP 20 MG PO (12:51)
[2023-08-09] MEDS: Betamet Acet/Betamet Na Ph Inj. 30 MG/5 ML 12 MG IM (12:51)
[2023-08-09 13:05] VITALS: BP 118/67; PULSE 82
[2023-08-09 15:34] VITALS: BP 119/76; PULSE 109
[2023-08-09 20:46] VITALS: BP 118/62; PULSE 77; TEMP 37.1
--- NOTE | 2023-08-09 20:46 | W.OBNST ---
Date of service: 08/09/23 Time of Service: 12:30 NST Evaluation Reason for NST Reasons for Nonstress Test: LABOR Gestational Age Gestational Age in Weeks and Days: 32 Weeks and 4Days Test and Monitor Explained Test/Monitor Explained: Test Explained, Monitor Explained and Patient Verbalized Understanding Vital Signs Blood Pressure: 118/62 Pulse: 77 Temperature: 98.8 F NST Information Date on Monitor: 08/09/23 Time on Monitor: 12:05 NST Interventions: PO Hydration NST Evaluation Patient States Movement: Present FHR Baseline: 135 Variability: Moderate 6-25 bpm Accelerations: 15x15 Decelerations: None Note Ultrasound Done: Presentation Presentation Results: Vertex Coding for Presentation w/NST: Completed Exam. NST Note Note: Transferred to [facility] [place]. See note. NST Reviewed and Verified by: Karen Gomez
== END 2023-08-09 13:20 | disposition short-term general hospital (02) ==
LOC: BCD 12:04 → OBS 12:12
PROVIDERS: PCP Physician Assistant; Visit Provider Obstetrics & Gynecology
DX: O60.03 Preterm labor without delivery, third trimester (principal); Z3A.32 32 weeks gestation of pregnancy
CPT/HCPCS: 59025; J0702

== ENCOUNTER 2023-08-09 12:12 | Outpatient (REF) | payer OTHER, MEDICAID, SELFPAY | END 2023-08-09 12:13 | disposition home or self-care (01) | LOC: LBN 12:12 | PROVIDERS: PCP Physician Assistant; Visit Provider Obstetrics & Gynecology | DX: Z34.93 Encounter for supervision of normal pregnancy, unspecified, third trimester (principal); Z36.85 Encounter for antenatal screening for Streptococcus B; Z3A.32 32 weeks gestation of pregnancy | CPT/HCPCS: 87081 ==

== ENCOUNTER 2023-08-24 00:08 | Inpatient (IN) | payer OTHER, MEDICAID, SELFPAY ==
[2023-08-24] VITALS (43 sets, daily range): BP systolic 104–132; BP diastolic 48–73; PULSE 65–146; RESP 12–18; TEMP 36.6–37.1; O2SAT 95–100; BMI 25.0
--- NOTE | 2023-08-24 00:13 | HPE_ITS ---
Date of service: 08/24/23 Time of Service: 00:26 Assessment and Plan Assessment and plan (1) premature rupture of membranes: Status: Acute Assessment and plan: Patient is grossly ruptured. Has received 2 courses of betamethasone for lung maturity. Unable to transport to tertiary center due to advanced cervical dilation. [employer] notified and on their way. Anticipate NVD. (2) Cervical cerclage suture present: Assessment and plan: Cerclage suture palpated on exam. 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 OB-HPI Labor/Delivery History of Present Illness Reason for Visit: LABOR Chief Complaint: Suspected Rupture of Membranes , Associated Signs and Symptoms of Suspected ROM: Gush of fluid at 11:30, continuing to leak. ANETA Calculator Estimated Delivery Date Method Current WG Current Estimate 09/30/23 LMP (Certain) 34w 5d Other Estimates 09/29/23 Ultrasound #1 34w 6d Comments: Pt had a gush of clear fluid @11:30 and has continued to leak since. She feels a lot of pressure and mild contractions. No bleeding. Good movement. History of Present Expected Delivery Route/Plan - (cerclage). Plan CNM care after 37w EGA. REINALDO - Nasir Rocha Interested in waterbirth Rubella & varicella non-immune - offer vaccines Specific Issues/Plan 1. Vaping tobacco, trying to cut down - mostly just uses when around her boyfriend/family 2. History of anxiety and depression- sees a therapist regularly. 3. Pap LGSIL will need repeat in 1 yr per [facility], plan PAP at 6 wk PP visit 4. Low lying placenta - repeat US at 28 weeks - placenta no longer low lying. 5. Cervical insufficiency: Incidental finding on anatomy scan at 19 wks:cervical funneling with only 5mm of closed cervix -Rescue cerclage placed @[facility] [place] (05/11/23). 05/18/23 f/u: Increased cervical discharge. Nl ADONAY. 06/07/23: no concerns with cerclage -07/26/23 - 07/31/23 Cerclage removed at [facility] 2/2 contractions. 3cm dilated at the time. Steroid complete. Stopped contractions and discharged undelivered 31w2d EGA. -08/09-08/13/23 Transfered at 32w4d 3cm dilated. Repeat rescue steroids. Plan return for EUA 35w EGA ? retained stitch. - Covid vaccinated - Covid infection 11/2022 - Panorama, CF and AFP declined Review of Systems Constitutional Constitutional: Reports system reviewed and no additional complaints, except as documented Gastrointestinal Gastrointestinal: Denies nausea and Denies vomiting Genitourinary Genitourinary: Reports system reviewed and no additional complaints, except as documented Musculoskeletal Comments: No regular contractions PFSH All Active Problems (Updated 08/24/23 @ 00:23 by Karen Gomez MD) premature rupture of membranes (Acute) contractions (Acute) Depression (Chronic) venlafaxine Anxiety (Chronic) (Acute) Tobacco dependence (Acute) vaping Rubella non-immune status, antepartum (Acute) Maternal varicella, non-immune (Acute) LGSIL on Pap smear of cervix (Acute) Cervical incompetence during in second trimester (Acute) Medical History (Updated 08/24/23 @ 00:23 by Karen Gomez MD) Cervical cerclage suture present Removed 07/26/23 @[facility] 3cm dilated - observed x5 days with no cervical change, then d/c home Eating disorder Low lying placenta, antepartum Family History (Updated 03/12/23 @ 15:29 by Kerry Mojica CNM) Father Diabetes Enlarged liver Depression Sister Thyroid disease Social History (Updated 06/12/23 @ 13:01 by Nora Suggs) Smoking/Tobacco Use Status: Former Tobacco Use Smoking risk assessment performed?: Yes Alcohol Intake: former Drug use: Occasionally Substance use type: marijuana Adopted: No Caregiver/Support person: No Foster care: No Household members: significant other Housing: apartment Number of Children: 1 Communication Needs: None Education Level: high school Do you need help understanding health information?: Rarely current occupation: None Pets and animals: No Sexually active: Yes Do you think of yourself as: straight/heterosexual Current gender identity: female What is your relationship status?: living with partner How often do you talk on the phone with friends or family?: three or more times per week How often do you get together with friends or relatives?: three or more times per week Do you belong to any clubs or organized social groups?: no Panel score (0-1 are the most socially isolated patients): 2 What type of physical activity do you participate in: none Sally/Gnosticist: None Special sally needs: No Seatbelt use: always Helmet use: Yes Helmet use: always Drive intox or ride w/intox river driver: No Do you feel safe at home: Yes Do you feel safe in your relationship?: Yes History History 1 Para 0 Hx # Term Pregnancies 0 Multiple births 0 Hx # Pregnancies 0 Ectopic pregnancies 0 AB induced 0 Hx Number of Living Children 0 AB spontaneous 0 Meds Allergies and Home Medications Allergies Allergy/AdvReac Type Severity Reaction Status Date / Time No Known Allergies Allergy Verified 08/23/23 09:51 Home Medications Medication Instructions Recorded Confirmed Type polyethylene glycol 3350 17 17 g PO DAILY 06/07/23 08/23/23 History gram/dose oral powder (Miralax) vitamin #56-iron 35 mg 1 cap PO DAILY #90 caps 06/26/23 08/23/23 Rx and 5 mg-folic acid 1 mg-dha capsule Exam Physical Exam Vital Signs Reviewed: Yes Detailed Labor and Delivery Exam Dilation: 4 Effacement (%): 100 station: +2 Cervix position: mid Consistency: soft Alcantara Score: Cervical Points Exam 0 1 2 3 Dilation Closed 1-2cm 3-4 cm 5-6cm Effacement 0-30% 40-50% 60-70% 80% Consistency Firm Medium Soft Station -3 -2 -1,0 +1,+2 Position Posterior Mid Anterior Amniotic Membrane Status: Ruptured Fetus A Heart Rate Baseline: 120 Monitor Accelerations: 15 X 15 Monitor Decelerations: None Variability: Moderate (6-25 BPM) Presentation: Vertex Categories: Category I Date of Membrane Rupture: 08/23/23 Time of Membrane Rupture: 11:30 Detailed HEENT Exam Head: Present normocephalic and atraumatic Detailed Abdominal Exam Comments: gravid, nontender Detailed Neurological Exam Neurological: Present alert, oriented X3 and CN II-XII intact DetailedPsychiatric Exam Psychiatric: Present normal affect, normal thought process and cooperative Results Results Group Beta Strep: Negative Blood Type: O+ Rubella Status: Nonimmune Varicella Immunity: Nonimmune Risk Assessment Risk for Shoulder Dystocia Historical/Initial OB: NEGATIVE FOR: Pelvic Abnormality, Pre- BMI>30, Previous Shoulder Dystocia or Previous Macrosomia Risk for Pre-Eclampsia Date Initiated/Initials: KM 03/12/23 Yes, if one or more: NEGATIVE FOR: Hx Pre-E/Gest HTN, Chronic HTN, Multiple Gestation, Pre-gestational DM, Renal Disease, Systemic Lupus or APA Syndrome Yes, if 2 or more: POSITIVE FOR: Nulliparity; NEGATIVE FOR: Age>= 35 yrs, >10yr btwn pregnancies, BMI>30, ethinicty, Mother/Sister w/ Pre-E or Previous IUGR Risk for Post- Hemorrhage Initial: NEGATIVE FOR: Multiple Gestation, Previous PPH, Known Clotting Deficiency, Grand Multiparity or Anticoagulation Risks Reviewed Risks Reviewed Upon Admission: Yes
[2023-08-24 00:40] LABS: HCT 31.4 % (36.0-46.0); HGB 10.9 g/dL (11.2-15.7); MCH 33.3 pg (27.0-33.0); MCHC 34.7 % (32.0-36.0); MCV 96 fL (80-95); MPV 10.5 fL (8.0-11.0); Platelet Count 215 10^3/uL (130-400); RBC 3.27 10^6/uL (3.93-5.22); RDW 13.2 % (11.7-14.6); RDW-SD 46.2 fL; WBC 13.39 10^3/uL (4.4-10.8)
[2023-08-24] MEDS: Normal Saline Flush 10 ML SYR IVP ×2 (00:51→05:14)
--- NOTE | 2023-08-24 01:11 | W.PM.OBNL1 ---
Date of service: 08/24/23 Time of Service: 01:11 Pelvic Exam Dilation: 5 Effacement (%): 100 station: +3 Comments: Cerclage knot palpated at 2o clock with a loop of suture to 3o clock. Unable to visualize via speculum exam. Attempted blind cutting of the suture unsuccessfully. Fetus A Heart Rate Baseline: 120 Presentation: Vertex Variability: Moderate (6-25 BPM) Accelerations: 15 X 15 Decelerations: None Assessment and Plan Assessment and plan (1) Cervical cerclage suture present: Assessment and plan: Unsuccessful attempt at cutting cerclage suture and remaining loop. It only seems to be present in a small portion of the cervix. Will plan to see if she progresses in labor and attempt at removing the suture after she progresses further. Objective Abnormal lab results 08/24/23 Range/Units 00:29 WBC 13.39 H (4.4-10.8) 10^3/uL RBC 3.27 L (3.93-5.22) 10^6/uL Hgb 10.9 L (11.2-15.7) g/dL Hct 31.4 L (36.0-46.0) % MCV 96 H (80-95) fL MCH 33.3 H (27.0-33.0) pg Temp Pulse Resp BP 98.6 F 75 16 112/65 08/24/23 00:45 08/24/23 00:45 08/24/23 00:45 08/24/23 00:45 Laboratory Results WBC 13.39 10^3/uL (4.4-10.8) H 08/24/23 00:29 RBC 3.27 10^6/uL (3.93-5.22) L 08/24/23 00:29 Hgb 10.9 g/dL (11.2-15.7) L 08/24/23 00:29 Hct 31.4 % (36.0-46.0) L 08/24/23 00:29 MCV 96 fL (80-95) H 08/24/23 00:29 MCH 33.3 pg (27.0-33.0) H 08/24/23 00:29 MCHC 34.7 % (32.0-36.0) 08/24/23 00:29 RDW 13.2 % (11.7-14.6) 08/24/23 00:29 Plt Count 215 10^3/uL (130-400) 08/24/23 00:29 MPV 10.5 fL (8.0-11.0) 08/24/23 00:29 Vital Signs Reviewed: Yes Subjective Interval history since last seen: Occasional ctxs Results Hemoglobin/Hematocrit: Hgb 10.9 g/dL (11.2-15.7) L 08/24/23 00:29 Hct 31.4 % (36.0-46.0) L 08/24/23 00:29 Abnormal Lab Findings: Abnormal Labs 08/24/23 00:29 WBC 13.39 H RBC 3.27 L Hgb 10.9 L Hct 31.4 L MCV 96 H MCH 33.3 H
[2023-08-24 01:58] LABS: Source Nasal/Nares
--- NOTE | 2023-08-24 02:16 | W.PM.OBNL1 ---
Date of service: 08/24/23 Time of Service: 02:16 Pelvic Exam Dilation: 6 Effacement (%): 100 station: +3 Fetus A Heart Rate Baseline: 120 Presentation: Cephalic Variability: Moderate (6-25 BPM) Categories: Category I Accelerations: 15 X 15 Decelerations: None Assessment and Plan Assessment and plan (1) premature rupture of membranes: Status: Acute Assessment and plan: Continue expectant management Objective Abnormal lab results 08/24/23 Range/Units 00:29 WBC 13.39 H (4.4-10.8) 10^3/uL RBC 3.27 L (3.93-5.22) 10^6/uL Hgb 10.9 L (11.2-15.7) g/dL Hct 31.4 L (36.0-46.0) % MCV 96 H (80-95) fL MCH 33.3 H (27.0-33.0) pg Temp Pulse Resp BP 98.6 F 75 16 112/65 08/24/23 00:45 08/24/23 00:45 08/24/23 00:45 08/24/23 00:45 Laboratory Results WBC 13.39 10^3/uL (4.4-10.8) H 08/24/23 00:29 RBC 3.27 10^6/uL (3.93-5.22) L 08/24/23 00:29 Hgb 10.9 g/dL (11.2-15.7) L 08/24/23 00:29 Hct 31.4 % (36.0-46.0) L 08/24/23 00:29 MCV 96 fL (80-95) H 08/24/23 00:29 MCH 33.3 pg (27.0-33.0) H 08/24/23 00:29 MCHC 34.7 % (32.0-36.0) 08/24/23 00:29 RDW 13.2 % (11.7-14.6) 08/24/23 00:29 Plt Count 215 10^3/uL (130-400) 08/24/23 00:29 MPV 10.5 fL (8.0-11.0) 08/24/23 00:29 COVID-19 Source Nasal/Nares 08/24/23 00:35 Patient ABO/Rh O Positive 08/24/23 00:29 Antibody Screen NEGATIVE 08/24/23 00:29 Subjective Interval history since last seen: Pt feels a lot of lower pelvic discomfort and pressure though no regular contractions. Results Hemoglobin/Hematocrit: Hgb 10.9 g/dL (11.2-15.7) L 08/24/23 00:29 Hct 31.4 % (36.0-46.0) L 08/24/23 00:29 Abnormal Lab Findings: Abnormal Labs 08/24/23 00:29 WBC 13.39 H RBC 3.27 L Hgb 10.9 L Hct 31.4 L MCV 96 H MCH 33.3 H
[2023-08-24 02:28] LABS: COVID-19 PCR Negative (Negative)
--- NOTE | 2023-08-24 05:09 | W.PM.OBNL1 ---
Date of service: 08/24/23 Time of Service: 05:09 Pelvic Exam Dilation: 6 Effacement (%): 100 station: +3 Comments: Suture knot and loop still palpated but cervix not tense on it. Fetus A Heart Rate Baseline: 120 Presentation: Cephalic Variability: Moderate (6-25 BPM) Categories: Category I Accelerations: 15 X 15 Decelerations: None Assessment and Plan Assessment and plan (1) premature rupture of membranes: Status: Acute Assessment and plan: We discussed augmenting her labor with pitocin and she is agreeable to this plan. She is interested in trying nitrous oxide for pain management but may decide on an epidural. Objective Abnormal lab results 08/24/23 Range/Units 00:29 WBC 13.39 H (4.4-10.8) 10^3/uL RBC 3.27 L (3.93-5.22) 10^6/uL Hgb 10.9 L (11.2-15.7) g/dL Hct 31.4 L (36.0-46.0) % MCV 96 H (80-95) fL MCH 33.3 H (27.0-33.0) pg Temp Pulse Resp BP 98.0 F 75 16 112/65 08/24/23 04:08 08/24/23 00:45 08/24/23 00:45 08/24/23 00:45 Laboratory Results WBC 13.39 10^3/uL (4.4-10.8) H 08/24/23 00:29 RBC 3.27 10^6/uL (3.93-5.22) L 08/24/23 00:29 Hgb 10.9 g/dL (11.2-15.7) L 08/24/23 00:29 Hct 31.4 % (36.0-46.0) L 08/24/23 00:29 MCV 96 fL (80-95) H 08/24/23 00:29 MCH 33.3 pg (27.0-33.0) H 08/24/23 00:29 MCHC 34.7 % (32.0-36.0) 08/24/23 00:29 RDW 13.2 % (11.7-14.6) 08/24/23 00:29 Plt Count 215 10^3/uL (130-400) 08/24/23 00:29 MPV 10.5 fL (8.0-11.0) 08/24/23 00:29 COVID-19 Source Nasal/Nares 08/24/23 00:35 SARS-CoV-2 (PCR) Negative (Negative) 08/24/23 00:35 Patient ABO/Rh O Positive 08/24/23 00:29 Antibody Screen NEGATIVE 08/24/23 00:29 Subjective Interval history since last seen: Pt is very uncomfortable with pelvic pressure and occasional strong ctxs. She is requesting pain management and cervical exam. Results Hemoglobin/Hematocrit: Hgb 10.9 g/dL (11.2-15.7) L 08/24/23 00:29 Hct 31.4 % (36.0-46.0) L 08/24/23 00:29 Abnormal Lab Findings: Abnormal Labs 08/24/23 00:29 WBC 13.39 H RBC 3.27 L Hgb 10.9 L Hct 31.4 L MCV 96 H MCH 33.3 H
[2023-08-24] MEDS: Lactated Ringers 1,000 ML 125 ML IV ×2 (05:15→12:47)
[2023-08-24] MEDS: Oxytocin/Normal Saline 30 UNIT/500 ML BAG 2 UNITS IV (05:17)
--- NOTE | 2023-08-24 06:43 | ANES.PREOP_ITS ---
General Info Date of Service Date Performed: 08/24/23 Height: 5 ft 3 in Weight: 63.957 kg Body Mass Index (BMI): 25.0 Meds Allergies and Home Medications Allergies Allergy/AdvReac Type Severity Reaction Status Date / Time No Known Allergies Allergy Verified 08/23/23 09:51 Home Medication Medication Instructions Recorded polyethylene glycol 3350 17 17 g PO DAILY 06/07/23 gram/dose oral powder (Miralax) vitamin #56-iron 35 mg 1 cap PO DAILY #90 caps 06/26/23 and 5 mg-folic acid 1 mg-dha capsule Current Visit Medications: Current Medications Generic Name Dose Route Start Last Admin Trade Name Freq PRN Reason Stop Dose Admin Sodium Chloride 500 mls @ 0 mls/hr 08/24/23 00:08 Saline 500ml Bag IV PRN PRN As Directed Ringer's Solution 1,000 mls @ 125 mls/hr 08/24/23 05:15 08/24/23 05:15 IV 125 mls/hr INFUSION MICKY Administration Sodium Chloride 500 mls @ 0 mls/hr 08/24/23 05:07 Saline 500ml Bag IV PRN PRN As Directed Oxytocin/Sodium Chloride 30 unit in 500 mls @ 2 mls/hr 08/24/23 05:15 08/24/23 06:30 Pitocin/Normal Saline IV 1 milliunits/min INFUSION MICKY 1 mls/hr Titration Protocol 2 MILLIUNITS/MIN IV Miscellaneous Supplies 1 each 08/24/23 00:15 Iv Access IV DIRECTED MICKY IV Miscellaneous Supplies 1 each 08/24/23 05:15 Iv Access IV DIRECTED MICKY Sodium Chloride 0 ml 08/24/23 00:08 08/24/23 05:14 Normal Saline Flush 10 Ml Syr IVP 10 ml PRN PRN Administration Sodium Chloride 0 ml 08/24/23 05:07 Normal Saline Flush 10 Ml Syr IVP PRN PRN PFSH Active Problems Active Problems: Problem Status Onset Code Depression F32.A Anxiety F41.9 Z34.90 Tobacco dependence F17.200 Rubella non-immune status, antepartum O09.899, Z28.39 Maternal varicella, non-immune O09.899, Z28.39 LGSIL on Pap smear of cervix R87.612 Cervical incompetence during in second trimester O34.32 contractions O47.00 premature rupture of membranes O42.919 Medical History Medical History (Updated 08/24/23 @ 00:23 by Karen Gomez MD) Cervical cerclage suture present Removed 07/26/23 @[facility] [place] 3cm dilated - observed x5 days with no cervical change, then d/c home Eating disorder Low lying placenta, antepartum Tobacco Smoking/Tobacco Use Status: Former Tobacco Use Alcohol Alcohol Intake: former Substance Use Substance use: Occasionally Substance use type: marijuana Prental History History 1 Para 0 Hx # Term Pregnancies 0 Multiple births 0 Hx # Pregnancies 0 Ectopic pregnancies 0 AB induced 0 Hx Number of Living Children 0 AB spontaneous 0 Vital Signs and Lab Results Vital Signs Most Recent Vital Signs in EMR: Most Recent Vital Signs Temp Pulse Resp BP 36.7 C 75 16 112/65 08/24/23 05:00 08/24/23 00:45 08/24/23 00:45 08/24/23 00:45 Lab Results 08/24/23 00:29 Blood Type / Crossmatch: Patient ABO/Rh O Positive 08/24/23 Antibody Screen NEGATIVE 08/24/23 Complete Blood Count: White Blood Count 13.39 10^3/uL (4.4-10.8) H 08/24/23 00:29 Red Blood Count 3.27 10^6/uL (3.93-5.22) L 08/24/23 00:29 Hemoglobin 10.9 g/dL (11.2-15.7) L 08/24/23 00:29 Hematocrit 31.4 % (36.0-46.0) L 08/24/23 00:29 Platelet Count 215 10^3/uL (130-400) 08/24/23 00:29 Complete Metabolic Panel: No Data to Display Liver Function Panel: No Data to Display Coagulation Panel: No Data to Display Cardiac Panel: No Data to Display Arterial Blood Gas: 2 No Data to Display Venous Blood Gas: No Data to Display Pancreas Panel: No Data to Display Thyroid Panel: No Data to Display Infectious Disease: Coronavirus (COVID-19)(PCR) Negative (Negative) 08/24/23 00:35 Coronavirus 2019 Source Nasal/Nares 08/24/23 00:35 Blood Cultures: No Data to Display Toxicology Panel: No Data to Display Panel: No Data to Display Imaging and Studies Imaging and Studies Study information below may be from another EMR and interpreted by another provider. Please see original notes in EMR for more complete details. EKG Summary: 02/08: sinus. Anesthesia Assessment and Plan Anesthesia History Personal History: No History of Anesthesia Complications Family History: No Family History of Anesthesia Complications Exercise Tolerance Exercise Tolerance: Metabolic Equivalents>4 Pertinent Negatives Pertinent Negatives: No Major Cardiovascular Symptoms or Complaints and No Major Pulmonary Symptoms or Complaints Cardiac & Pulmonary Exam Cardiac Exam: Normal S1/S2 Heart Sounds Pulmonary Exam: Clear Bilateral Breath Sounds Implantable Cardiac Device Does patient have a Pacemaker or an ICD?: No Airway Exam Known Difficult Airway: No Mallampati Class: 1 Mouth Opening: Normal (> 3cm) Thyromental Distance: Greater than 3 cm Neck Range of Motion: Full ROM Neck Circumference: Normal Teeth Condition: Normal Dentition ASA Classification ASA Score: ASA 2 Emergency Case?: No NPO Status NPO Status: Full Stomach Status Status: Confirmed Anesthesia Plan Resuscitation Status: Full Code Anesthesia Technique: Epidural Anesthesia Airway Planned: Natural Airway Pain Management: Epidural Monitors Used: Standard Monitors Preoperative Comments:: 23 yo g1 female with PROM at 6 cm 100%, cerclage stick i n place, requesting labor epidural. Sig PMHx: asthma as a kid, depression/anxiety, former smoker, occ cannabis. no HTN Plt 215. Previous Anes: - cerclage at [facility] with dexmed, prop, N20.
--- NOTE | 2023-08-24 07:41 | ANES.NEUR_ITS ---
Epidural/Spinal Catheter Date Performed: 08/24/23 Procedure Start: 07:20 Procedure Stop: 08:00 Requesting Provider: Karen Gomez Procedure Location: Obstetrics Reason Performed: Labor Epidural Standard Monitors Applied: Blood Pressure, SpO2 and See EMR for corresponding vital signs Patient Position: Sitting Sedation Given (Indicate Dose Given): No Sedation given Patient Mental Status: Awake Sterility: Hand Hygiene, Surgical Cap, Surgical Mask, Sterile Gloves, Sterile Drape/Sheet and Chlorhexidine Procedure Location: L3-L4 Interspace Epidural Needle: Tuohy 18 Gauge Needle Length: 3.5 Inch Needle Approach: Midline Epidural Procedure: Skin Prepped, Sterile Drape Placed, 1% Lidocaine to skin and subcutaneous tissue with 25G needle, Tuohy Needle placed, VERONA to Saline Used, Epidural Catheter Placed, Negative Heme, Negative CSF Flow and Tuohy Needle Removed Catheter Placed?: Catheter Placed Test Dose (Indicate Dose Given): 3ml 1.5% Lidocaine with 1:200K Epinephrine Given and Negative Test Dose Loss of Resistance Depth (cm): 5 Catheter depth at skin (cm): 11 Dressing: Sorbaview Dressing Placed, Mastisol Used and Dressing reinforced with Tape Epidural Prov ider Bolus (Indicate Dose Given): Total Ropivacaine 0.1% with Fentanyl 2mcg/ml Given from pump. (ml) Dose:: Total of 20 ml from pump Additives (Indicate Dose Given ): None Infusion Medication: Medication Infusion Began Medication Infusion: Ropivacaine 0.1% with Fentanyl 2mcg/ml Maintenance Infusion Rate (ml/hour): 10 PCEA Bolus Dose (ml): 5 Block Level: N/A Paresthesia: None Ultrasound: Not Used Number of Attempts (See previous attempts in note section): 1 Procedure Tolerated: No Complications and Patient tolerated well Procedure Outcome: Successful Procedure Comment:: test dose negative. No response at 10 ml. additional 5 from pump with slight relief. additional 5 ml from pump with continued relief. Pt. now feeling pressure, states also felt a tejada of fluid into bed. She is now closing her eyes and appears comfortable. Educated on PCEA use. Performed By: Roque Osullivan
--- NOTE | 2023-08-24 08:11 | W.PM.OBNL1 ---
Date of service: 08/24/23 Time of Service: 08:00 Pelvic Exam Dilation: 8 Effacement (%): 90 station: +3 (head moving through the cervix now) Contractions Contraction Frequency(min): q1-2min Fetus A Heart Rate Baseline: 120 Variability: Moderate (6-25 BPM) Categories: Category I Accelerations: 15 X 15 Decelerations: None Amniotic Membrane Status: Ruptured Rupture Method: Spontaneous Amniotic Fluid: Clear Assessment and Plan Assessment and plan (1) premature rupture of membranes: Status: Acute Assessment and plan: Pt more comfortable s/p epidural. head moving through cervix making it even more difficult to reach the cerclage suture. Will plan to remove the suture after delivery. Continue pitocin @1. Objective Abnormal lab results 08/24/23 Range/Units 00:29 WBC 13.39 H (4.4-10.8) 10^3/uL RBC 3.27 L (3.93-5.22) 10^6/uL Hgb 10.9 L (11.2-15.7) g/dL Hct 31.4 L (36.0-46.0) % MCV 96 H (80-95) fL MCH 33.3 H (27.0-33.0) pg Temp Pulse Resp BP 98.1 F 75 16 112/65 08/24/23 05:00 08/24/23 00:45 08/24/23 00:45 08/24/23 00:45 Laboratory Results WBC 13.39 10^3/uL (4.4-10.8) H 08/24/23 00:29 RBC 3.27 10^6/uL (3.93-5.22) L 08/24/23 00:29 Hgb 10.9 g/dL (11.2-15.7) L 08/24/23 00:29 Hct 31.4 % (36.0-46.0) L 08/24/23 00:29 MCV 96 fL (80-95) H 08/24/23 00:29 MCH 33.3 pg (27.0-33.0) H 08/24/23 00:29 MCHC 34.7 % (32.0-36.0) 08/24/23 00:29 RDW 13.2 % (11.7-14.6) 08/24/23 00:29 Plt Count 215 10^3/uL (130-400) 08/24/23 00:29 MPV 10.5 fL (8.0-11.0) 08/24/23 00:29 COVID-19 Source Nasal/Nares 08/24/23 00:35 SARS-CoV-2 (PCR) Negative (Negative) 08/24/23 00:35 Patient ABO/Rh O Positive 08/24/23 00: Antibody Screen NEGATIVE 08/24/23 00:29 Subjective Interval history since last seen: Feeling a little bit better after an epidural but still feels a lot of pressure. Results Hemoglobin/Hematocrit: Hgb 10.9 g/dL (11.2-15.7) L 08/24/23 00:29 Hct 31.4 % (36.0-46.0) L 08/24/23 00:29 Abnormal Lab Findings: Abnormal Labs 08/24/23 00:29 WBC 13.39 H RBC 3.27 L Hgb 10.9 L Hct 31.4 L MCV 96 H MCH 33.3 H
--- NOTE | 2023-08-24 10:24 | W.PM.OBNL1 ---
Date of service: 08/24/23 Time of Service: 10:24 Objective Abnormal lab results 08/24/23 Range/Units 00:29 WBC 13.39 H (4.4-10.8) 10^3/uL RBC 3.27 L (3.93-5.22) 10^6/uL Hgb 10.9 L (11.2-15.7) g/dL Hct 31.4 L (36.0-46.0) % MCV 96 H (80-95) fL MCH 33.3 H (27.0-33.0) pg Temp Pulse Resp BP Pulse Ox 98.1 F 67 12 106/60 97 08/24/23 05:00 08/24/23 10:20 08/24/23 10:05 08/24/23 10:20 08/24/23 10:05 Laboratory Results WBC 13.39 10^3/uL (4.4-10.8) H 08/24/23 00:29 RBC 3.27 10^6/uL (3.93-5.22) L 08/24/23 00:29 Hgb 10.9 g/dL (11.2-15.7) L 08/24/23 00:29 Hct 31.4 % (36.0-46.0) L 08/24/23 00:29 MCV 96 fL (80-95) H 08/24/23 00:29 MCH 33.3 pg (27.0-33.0) H 08/24/23 00:29 MCHC 34.7 % (32.0-36.0) 08/24/23 00:29 RDW 13.2 % (11.7-14.6) 08/24/23 00:29 Plt Count 215 10^3/uL (130-400) 08/24/23 00:29 MPV 10.5 fL (8.0-11.0) 08/24/23 00:29 COVID-19 Source Nasal/Nares 08/24/23 00:35 SARS-CoV-2 (PCR) Negative (Negative) 08/24/23 00:35 Patient ABO/Rh O Positive 08/24/23 00:29 Antibody Screen NEGATIVE 08/24/23 00:29 Subjective Interval history since last seen: Patient seen, care transitioned from Dr. Gomez to myself. Patient has had rupture of membranes for approximately 11 hours. She is now mirza on her own every 2 to 4 minutes without difficulty. She is comfortable with her epidural. She has a category 1 heart rate tracing. At last check was 9 cm. Anticipate vaginal delivery in the near future. Continue to monitor closely. Results Hemoglobin/Hematocrit: Hgb 10.9 g/dL (11.2-15.7) L 08/24/23 00:29 Hct 31.4 % (36.0-46.0) L 08/24/23 00:29 Abnormal Lab Findings: Abnormal Labs 08/24/23 00:29 WBC 13.39 H RBC 3.27 L Hgb 10.9 L Hct 31.4 L MCV 96 H MCH 33.3 H
[2023-08-24] MEDS: diphenhydrAMINE 50 MG/ML VIAL 25 MG IVP (11:16)
[2023-08-24] MEDS: Oxytocin/Normal Saline 30 UNIT/500 ML BAG 95 UNITS IV (13:25)
--- NOTE | 2023-08-24 13:32 | PLAC_PTH ---
PATIENT: Florinda Leon LOC: OBS U#:[id number] AGE/SX: 23/F ROOM: OBS.304 RE08/24/[address]: Karen Gomez MD : 2000 BED: A DIS: 08/24/2023 SPEC #: [id number] RECD: 08/27/23 12:12 STATUS: MARY BETH REQ #: [id number] VIVEK: 08/24/23 13:[address]: Missy Delgado DEPT: Surgical Specimen RECD BY: Nirmala Vasquez ENTERED: 08/27/23 12:15 SP TYPE: PLAC OTHR DR: MD Zoraida Albert Sarah Tissues: 1 - PLACENTA (3RD TRIMESTER) Procedures: GROSS AND MICRO LEVEL 5 Comments: [id number]
--- NOTE | 2023-08-24 14:00 | OBVDS_ITS ---
Date of service: 08/24/23 Time of Service: 14:00 OB Labor/ Delivery Information Baby A Delivery Delivery Method: Spontaneaous Presentation: Vertex Vertex Position: Left Occipital Anterior Cord Description-Baby A: 3 Vessels Estimated Blood Loss: 100 Delivery Outcome: Liveborn Note: Patient is a 23-year-old female with a history of cervical incompetence with forward she received a cervical cerclage. During the course of her , she has had 3 separate transfers to [facility] for suspected labor. Most recently, she had been admitted and discharged after course of steroids. Her cervix at that time was noted to be approximately 1 cm 100% effaced with a baby at the +3 station. She presented after spontaneous rupture of membranes at approximately 10:30 PM on 08/23/2023. She progressed through course of labor and did receive Pitocin augmentation as her labor was somewhat stalled at 8 to 9 cm. At approximately noon, she was noted to be completely dilated with the vertex in the +3 station and moderate caput noted. With epidural that was providing good pain relief and good maternal effort, over approximately 1-1/2 hours that she pushed for delivery of a viable male . Baby was in the right occiput anterior position with no evidence of nuchal cord. Shoulders followed with ease. Three-vessel cord was noted clamped x2 and cut and the infant was handed off to the waiting software engineer web applications. Cord blood gas and cord blood sample were both obtained. Placenta delivered spontaneously and was noted to be intact. On inspection of the perineum there was a right second-degree laceration of the labia minora with no evidence of vaginal lacerations. A speculum was inserted as her previous cerclage stitch was noted to still be present. The stitch was completely circumferential and tied. The stitch was cut and removed in toto. On inspection of the cervix, cervix was hemostatic, however there was noted to be a deep attenuation of the posterior aspect of the cervix. My clinical impression is that patient had torn through the cervical stitch at some point over the course of the past few weeks. There was no evidence of bleeding. Most likely she will need a cervical cerclage with her next due to disruption of the cervix itself. The right labial laceration was repaired with 3-0 Vicryl suture and noted to be hemostatic. Uterus was firm and below the umbilicus after delivery. Baby remained on the warmer with pediatrics. Mom was in stable condition. QBL is 100 mL. Placenta, cord blood sample, and cord blood gases will all be sent to the lab. Providers Doctor: Missy Delgado Game Operator: Kaleigh Harvey Nurse: Abner Greenberg Labor/Delivery Information Group Beta Strep: Negative Rubella Status: Nonimmune Blood Type: O+ Varicella Immunity: Nonimmune Stages of Labor ROM Baby A: 08/23/23 ROM Baby A: 11:30
[2023-08-24] MEDS: Ibuprofen 600 MG TAB PO (16:10)
[2023-08-24] MEDS: Acetaminophen 325 MG TAB 650 MG PO (16:10)
--- NOTE | 2023-08-24 18:00 | W.PM.OBDISCH ---
Date of service: 08/24/23 Time of Service: 18:00 DS: Diagnosis Discharge Diagnosis (1) premature rupture of membranes: Start date: 08/24/23 Status: Acute Asessment and Plan: Patient presented to the center with spontaneous rupture of membranes. She at that time was at 34 weeks and 4 days. She progressed in labor, however did need augmentation and was noted to be completely dilated at approximately 12:00. She has known group B strep negative cultures previously received no antibiotics. (2) (normal spontaneous vaginal delivery): Status: Acute Asessment and Plan: Patient went on to have a normal spontaneous vaginal delivery of a viable male infant at approximately 1230. Subsequent to this baby had issues with requiring supplemental oxygen, and the decision was made for transfer to tertiary care center. Patient has previously been at [facility] and is known to their service. Baby will be transferred to [facility] under the care of the intensive care unit. (3) Cervical incompetence during in second trimester: Status: Acute Asessment and Plan: Patient had cervical incompetence during her and received a cervical cerclage. During the course of the third trimester, she did have episodes of contractions and attempt was made at removal of her cerclage stitch during one of her admissions at [facility]. After delivery today, and inspection of the cervix, there was noted to be a cervical stitch that was attached to the anterior portion of the cervix though intact. The knot was cut and the stitch was then removed. Patient did well after delivery. male also did well, however continue to have some respiratory difficulties and the decision was made to transfer to [facility] for intensive care services. Patient will be received by the maternal- medicine service, care of Dr. Wallace. Transportation arrangement will be made (4) Rubella non-immune status, antepartum: Status: Acute Asessment and Plan: Patient will need rubella immunization prior to discharge (5) Maternal varicella, non-immune: Status: Acute Asessment and Plan: Patient will need varicella prior to discharge (6) Depression: Status: Chronic Asessment and Plan: Recommendation to continue her home medications (7) Anxiety: Status: Chronic Discharge Plan Disposition Specific Acute Inpt Facility: [facility] Condition: Good Discharge Details Reason For Visit: Vaginal delivery after PROM Admit Date/Time: 08/24/23 00:08 Admit Provider: Karen Gomez Attending Provider: Karen Gomez Primary Care Provider: Deedee Conway Hospital Course Hospital Course: Patient was admitted to the center at 34 weeks and 5 days with spontaneous rupture of membranes. She had a known history of cervical incompetence and cerclage stitch that had been previously placed. She progressed through a course of labor and had Pitocin augmentation. She became completely dilated and delivered a viable male after a 1-1/2-hour second stage. On inspection, she had a second-degree right labial laceration, no cervical or basilar vaginal lacerations were noted, however her cervical stitch was still in place and free hanging from her anterior lip of her cervix. This was removed postdelivery. She will be transferred to [facility] along with her who will be attending the intensive care unit for ongoing issues with prematurity. Home Meds and New Rx's Prescriptions: No Action polyethylene glycol 3350 [Miralax] 17 gram/dose powder 17 g PO DAILY PNV #[id number] acid-dha 35 mg iron-5 mg iron-1 mg capsule 1 cap PO DAILY Qty: 90 3RF Discharge Instructions Activity:: Activity as Tolerated Activity:: Routine care Equipment/Supplies:: No Equipment Needed Diet:: As Tolerated OB:DS Summary Summary Vaginal Delivery Method: Spontaneaous Episiotomy Description: Midline Laceration Description: Perineal Laceration Extension: First Degree Contraception Discussed Contraception Discussed: No, Infant Gender-Baby A: Male weight: 6 lb 6.118 oz Status at Discharge Functional status at discharge: independent ambulation Overall status at discharge: patient is progressing back to baseline Mental Status: mental status grossly normal Speech and Movement: speech and movement normal Mood: congruent mood Affect: normal affect Exam Physical Exam Vital signs: Temp Pulse Resp BP Pulse Ox 97.9 F 75 18 120/73 99 08/24/23 16:30 08/24/23 16:30 08/24/23 16:30 08/24/23 16:30 08/24/23 16:30 Vital Signs Reviewed: Yes Narrative: Vital signs are stable, lochia is physiologic Constitutional Constitutional: no acute distress and average body habitus HEENT Exam HEENT Exam: Normal Neck Exam Neck Exam: Normal Respiratory Exam Respiratory Exam: Normal Cardiovascular Exam Cardiovascular Exam: Normal Abdominal Exam Abdomen: Tender Fundal Exam Fundus: Below Umbilicus and Firm Extremities Exam Extremity Exam: Normal; negative Calf Tenderness Skin Exam Skin Exam: Normal Neurological Exam Neurological Exam: Normal Psychiatric Exam Psychiatric Exam: Normal PFSH All Active Problems (Updated 08/24/23 @ 18:01 by Missy Delgado DO) (normal spontaneous vaginal delivery) (Acute) Depression (Chronic) venlafaxine Anxiety (Chronic) (Acute) Tobacco dependence (Acute) vaping Rubella non-immune status, antepartum (Acute) Maternal varicella, non-immune (Acute) LGSIL on Pap smear of cervix (Acute) Cervical incompetence during in second trimester (Acute) contractions (Acute) premature rupture of membranes (Acute) Medical History (Updated 08/24/23 @ 18:01 by Missy Delgado DO) Cervical cerclage suture present Removed 07/26/23 @[facility] 3cm dilated - observed x5 days with no cervical change, then d/c home Eating disorder Low lying placenta, antepartum Family History (Updated 03/12/23 @ 15:29 by Kerry Mojica CNM) Father Diabetes Enlarged liver Depression Sister Thyroid disease Social History (Updated 06/12/23 @ 13:01 by Nora Suggs) Smoking/Tobacco Use Status: Former Tobacco Use Smoking risk assessment performed?: Yes Alcohol Intake: former Drug use: Occasionally Substance use type: marijuana Adopted: No Caregiver/Support person: No Foster care: No Household members: significant other Housing: apartment Number of Children: 1 Communication Needs: None Education Level: high school Do you need help understanding health information?: Rarely current occupation: None Pets and animals: No Sexually active: Yes Do you think of yourself as: straight/heterosexual Current gender identity: female What is your relationship status?: living with partner How often do you talk on the phone with friends or family?: three or more times per week How often do you get together with friends or relatives?: three or more times per week Do you belong to any clubs or organized social groups?: no Panel score (0-1 are the most socially isolated patients): 2 What type of physical activity do you participate in: none Sally/Amish: None Special sally needs: No Seatbelt use: always Helmet use: Yes Helmet use: always Drive intox or ride w/intox full service vending driver: No Do you feel safe at home: Yes Do you feel safe in your relationship?: Yes History History 1 Para 0 Hx # Term Pregnancies 0 Multiple births 0 Hx # Pregnancies 0 Ectopic pregnancies 0 AB induced 0 Hx Number of Living Children 0 AB spontaneous 0 DS: Data Vitals/I&O Vitals and I&O: Vital Signs Temperature 97.9 F 08/24/23 16:30 Temperature Source Oral 08/24/23 16:30 Pulse 75 08/24/23 16:30 Pulse Rhythm Regular 08/24/23 16:20 Respiratory Rate 18 08/24/23 16:30 Respiratory Depth Normal 08/24/23 00:52 Blood Pressure 120/73 08/24/23 16:30 Blood Pressure Mean 88 08/24/23 16:30 Pulse Oximetry 99 08/24/23 16:30 Oxygen Delivery Method Room Air 08/24/23 00:20 Oxygen Flow Rate 0 08/24/23 00:20 Pain Level 6 08/24/23 16:10 Intake & Output 08/23/23 08/24/23 08/24/23 23:59 11:59 23:59 Intake Total 4.683 / 946.350 941.667 / 946.350 Output Total 50 / 1450 1400 / 1450 Balance -45.317 / -503.650 -458.333 / -503.650 Weight 141 lb Intake: IV 4.683 / 946.350 941.667 / 946.350 Output: Urine 50 / 1450 1400 / 1450 Other: Urine Color Pale Urine Appearance Clear Data Completed and Pending Labs on day of discharge: Labs from last 24 hours 08/24/23 08/24/23 08/24/23 00:35 00:29 00:29 WBC 13.39 H RBC 3.27 L Hgb 10.9 L Hct 31.4 L MCV 96 H MCH 33.3 H MCHC 34.7 RDW 13.2 Plt Count 215 MPV 10.5 COVID-19 Source Nasal/Nares SARS-CoV-2 (PCR) Negative Patient ABO/Rh O Positive Antibody Screen NEGATIVE
--- NOTE | 2023-08-24 18:52 | W.ANESPOSTOP ---
Postoperative Evaluation Date, Time and Location Date Performed: 08/24/23 Time Performed: 18:52 Patient Location: Obstetrics Vital Signs Most Recent Imported Vital Signs: Most Recent Vital Signs Temp Pulse Resp BP Pulse Ox 36.6 C 75 18 120/73 99 08/24/23 16:30 08/24/23 16:30 08/24/23 16:30 08/24/23 16:30 08/24/23 16:30 Pain Score Most Recent Pain Score: Most Recent Pain Score Pain Level 6 08/24/23 16:10 Assessment Mental Status: Awake (Alert & Oriented to Patient Baseline) Airway and Respiratory Function: Patent airway with normal (patient baseline) respiratory exam Cardiovascular Function: Hemodynamically Stable Hydration Status: Adequately Hydrated Nausea & Vomiting: No Nausea or Vomiting Pain: Pain is tolerable per patient Peripheral Nerve Block: Patient did not receive a nerve block
== END 2023-08-24 21:45 | disposition short-term general hospital (02) | DRG 768 ==
PROVIDERS: Admitting Provider Obstetrics & Gynecology; PCP Physician Assistant; Visit Provider Obstetrics & Gynecology
DX: O42.013 Preterm premature rupture of membranes, onset of labor within 24 hours of rupture, third trimester (principal); Z37.0 Single live birth; O34.33 Maternal care for cervical incompetence, third trimester; Z3A.34 34 weeks gestation of pregnancy; O99.344 Other mental disorders complicating childbirth; F41.8 Other specified anxiety disorders; O99.334 Smoking (tobacco) complicating childbirth; F17.290 Nicotine dependence, other tobacco product, uncomplicated
CPT/HCPCS: 36415; 85027; 86850; 86900; 86901; 87635; 88307; J1200

== ENCOUNTER 2023-10-02 18:33 | Outpatient (REF) | payer OTHER, MEDICAID, SELFPAY ==
[2023-10-04 15:03] LABS: Chlamydia Result Negative (Negative); GC Result Negative (Negative)
== END 2023-10-02 18:34 | disposition home or self-care (01) ==
LOC: LBN 18:33
PROVIDERS: PCP Physician Assistant; Visit Provider Obstetrics & Gynecology
DX: Z11.3 Encounter for screening for infections with a predominantly sexual mode of transmission (principal); N89.8 Other specified noninflammatory disorders of vagina
CPT/HCPCS: 87491; 87591; 87480; 87510; 87660

== ENCOUNTER 2023-12-11 16:25 | Outpatient (REF) | payer OTHER, MEDICAID, SELFPAY | END 2023-12-11 16:26 | disposition home or self-care (01) | LOC: LBN 16:25 | PROVIDERS: PCP Nurse Practitioner Adult Health; Visit Provider Obstetrics & Gynecology | DX: N89.8 Other specified noninflammatory disorders of vagina (principal) | CPT/HCPCS: 87480; 87510; 87660 ==

== ENCOUNTER 2024-02-05 15:45 | Outpatient (REF) | payer OTHER, MEDICAID, SELFPAY ==
--- NOTE | 2024-02-05 14:00 | PAPFT_PTH ---
PATIENT: Florinda Leon LOC: [facility] U#:[id number] AGE/SX: 23/F ROOM: RE02/05/[address]: Missy Delgado DO : 2000 BED: DIS: 02/05/2024 SPEC #: [id number] RECD: 02/05/24 17:41 STATUS: MARY BETH REQ #: [id number] VIVEK: 02/05/24 14:[address]: Missy Delgado DEPT: [facility] Cytology RECD BY: Tonya Ramírez ENTERED: 02/05/24 17:42 SP TYPE: PAPFT OTHR DR: [place] Ivory APRN Tissues: 1 - CX/ENDOCX FOR PAP SMEARS Procedures: PAP THIN PREP/UVM Screening HPV DNA PROBE Comments: [id number] (HPV 16 & 18/45)
== END 2024-02-05 15:46 | disposition home or self-care (01) ==
LOC: LBN 15:45
PROVIDERS: PCP Nurse Practitioner Adult Health; Visit Provider Obstetrics & Gynecology
DX: Z12.4 Encounter for screening for malignant neoplasm of cervix (principal); Z11.51 Encounter for screening for human papillomavirus (HPV); R87.810 Cervical high risk human papillomavirus (HPV) DNA test positive; Z87.410 Personal history of cervical dysplasia
CPT/HCPCS: 88142; 87624

== ENCOUNTER 2024-03-03 14:20 | Outpatient (REF) | payer OTHER, MEDICAID, SELFPAY ==
--- NOTE | 2024-03-03 14:00 | ENDO_PTH ---
PATIENT: Florinda Leon LOC: [facility] U#:[id number] AGE/SX: 23/F ROOM: RE03/03/[address]: Missy Delgado DO : 2000 BED: DIS: 03/03/2024 SPEC #: [id number] RECD: 03/03/24 17:35 STATUS: MARY BETH RE #: [id number] VIVEK: 03/03/24 14:[address]: Missy Delgado DEPT: Surgical Specimen RECD BY: Tonya Ramírez ENTERED: 03/03/24 17:36 SP TYPE: Endo OTHR DR: [place] Ivory APRN Tissues: 1 - ENDOCERVICAL BX/CURRETTE 2 - CERVICAL BIOPSY Procedures: GROSS AND MICRO LEVEL 4 Comments: [id number]
== END 2024-03-03 14:21 | disposition home or self-care (01) ==
LOC: LBN 14:20
PROVIDERS: PCP Nurse Practitioner Adult Health; Visit Provider Obstetrics & Gynecology
DX: R87.611 Atypical squamous cells cannot exclude high grade squamous intraepithelial lesion on cytologic smear of cervix (ASC-H) (principal)
CPT/HCPCS: 88305

== ENCOUNTER → 2024-04-16 03:40 | Outpatient (CLI) | payer OTHER, MEDICAID, SELFPAY ==
--- NOTE | 2024-04-16 07:45 | DI.RAD_ITS ---
Exam(s) XR FOOT RT COMPLETE EXAM: XR FOOT RT COMPLETE CLINICAL HISTORY: Right great toe pain, rt foot pain, M79.671, M79.674. TECHNIQUE: 2D digital imaging was performed of the right foot. Three images were obtained. AP, obl ique and lateral views were obtained. COMPARISON: No exams were available for comparison FINDINGS: BONES: No acute fracture is present. No bony destructive lesion is seen. JOINTS: No dislocation present. At the interphalangeal joint of the great toe there is joint space na rrowing. There also osteophytes seen medially. There is a well corticated osseous density at the me dial aspect of the interphalangeal joint of the great toe which appears chronic. Subchondral cysts a re also seen in the head of the proximal phalanx of the great toe. SOFT TISSUE: Normal. 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 DATA REPOSITORY: RADIATION DOSE DELIVERED:
[2024-04-16 15:05] LABS: HCG Qual (Urine) Negative
== END ==
PROVIDERS: PCP Nurse Practitioner Adult Health; Visit Provider Podiatrist
DX: N92.6 Irregular menstruation, unspecified; M19.071 Primary osteoarthritis, right ankle and foot
CPT/HCPCS: 73630; 81025

== ENCOUNTER 2024-04-18 10:16 | Outpatient (REF) | payer OTHER, MEDICAID, SELFPAY ==
[2024-04-18 12:59] LABS: Bilirubin Negative (Negative); Blood Negative (Negative); Clarity Clear (Clear); Glucose Negative (Negative); Ketones Negative (Negative); Leukocyte Esterase Negative (Negative); Nitrite Negative (Negative); Specific Gravity 1.025 (1.005-1.025); Urobilinogen 0.2 mg/dL (Up to 0.2)
== END 2024-04-18 10:17 | disposition home or self-care (01) ==
LOC: LBN 10:16
PROVIDERS: PCP Nurse Practitioner Adult Health; Visit Provider Advanced Practice Midwife
DX: N89.8 Other specified noninflammatory disorders of vagina (principal); F52.6 Dyspareunia not due to a substance or known physiological condition
CPT/HCPCS: 81003; 87086; 87480; 87510; 87660

== ENCOUNTER 2024-09-24 13:31 | Outpatient (CLI) | payer MEDICAID, SELFPAY ==
--- NOTE | 2024-09-24 13:30 | RT.EKG_ITS ---
APPROVED REPORT Exam: Resting ECG Reason for Exam: chest pain, dizziness Patient Location: O HR:54 bpm ECG Measurements Heart Rate 54 AXIS KS 125 P 67 QRSd 85 QRS 79 QT 411 T 65 QTc 390 Conclusion Sinus rhythm...normal P axis, V-rate 50- 99 RSR' in V1 or V2, probably normal variant...small R' only
== END 2024-09-24 13:32 | disposition home or self-care (01) ==
LOC: DI.KIM 13:32
PROVIDERS: PCP Nurse Practitioner Adult Health; Visit Provider Nurse Practitioner
DX: R07.9 Chest pain, unspecified (principal); R42 Dizziness and giddiness
CPT/HCPCS: 93010

== ENCOUNTER 2024-09-24 14:07 | Outpatient (CLI) | payer MEDICAID, SELFPAY ==
[2024-09-24 14:24] LABS: Abs Immature Grans 0.02 10^3/uL (0.0-0.06); Absolute Basophil Count 0.04 10^3/uL (0.0-0.2); Absolute Eosinophil Count 0.08 10^3/uL (0.0-0.7); Absolute Lymphocyte Count 2.39 10^3/uL (1.2-3.4); Absolute Monocyte Count 0.62 10^3/uL (0.1-0.8); Absolute Neutrophil Count 5.53 10^3/uL (1.2-6.7); Basophils % 0.5 %; Eosinophils % 0.9 %; HCT 44.4 % (36.0-46.0); HGB 14.9 g/dL (11.2-15.7); Immature Grans % 0.2 %; Lymphocytes % 27.5 %; MCHC 33.6 % (32.0-36.0); MCV 93 fL (80-95); Monocytes % 7.1 %; Neutrophils % 63.8 %; Platelet Count 344 10^3/uL (130-400); RDW 12.5 % (11.7-14.6); RDW-SD 42.5 fL; WBC 8.68 10^3/uL (4.4-10.8)
[2024-09-24 16:01] LABS: ALT 24 U/L (14-59); AST 24 U/L (15-37); Albumin 4.5 g/dL (3.4-5.0); Alkaline Phosphatase 71 U/L (46-116); Anion Gap 8.8 mmol/L (3-11); BUN 8 mg/dL (7-18); Bilirubin, Total 0.95 mg/dL (0.2-1.0); CO2 28.2 mmol/L (21.0-32.0); CREATININE 0.8 mg/dL (0.55-1.02); Calcium 9.1 mg/dL (8.5-10.1); Chloride 107 mmol/L (98-107); Ferritin 54 ng/mL (8-252); Glucose 80 mg/dL (74-106); Potassium 3.6 mmol/L (3.5-5.1); Sodium 144 mmol/L (136-145); TSH (W/Ref FT4) 1.38 uIU/mL (0.36-3.74); Total Protein 7.8 g/dL (6.4-8.2); Vitamin B12 575 pg/mL (193-986)
[2024-09-25 12:46] LABS: Lyme Ab w Rflx to Lyme Confirm Negative (Negative)
[2024-09-27 16:15] LABS: Anaplasma phagocytophilum Negative (Negative); B. miyamotoi PCR Negative (Negative); Babesia divergens/MO-1 Negative (Negative); Babesia duncani Negative (Negative); Babesia microti Negative (Negative); Ehrlichia chaffeensis Negative (Negative); Ehrlichia ewingii/canis Negative (Negative); Ehrlichia muris eauclairensis Negative (Negative)
== END 2024-09-24 14:08 | disposition home or self-care (01) ==
LOC: LBO 14:09
PROVIDERS: PCP Nurse Practitioner Adult Health; Visit Provider Nurse Practitioner
DX: I95.9 Hypotension, unspecified (principal); R63.4 Abnormal weight loss; R53.83 Other fatigue; R42 Dizziness and giddiness; R07.9 Chest pain, unspecified; R07.89 Other chest pain
CPT/HCPCS: 36415; 80053; 87798; 82607; 82728; 84443; 85025; 86618

== ENCOUNTER 2025-03-05 00:35 | Outpatient (CLI) | payer MEDICAID, SELFPAY ==
--- NOTE | 2025-03-05 08:44 | DI.RAD_ITS ---
Exam(s) XR FOOT RT COMPLETE EXAM: XR FOOT RT COMPLETE CLINICAL HISTORY: Right foot pain,m79.671. TECHNIQUE: 2D digital imaging was performed. COMPARISON: CR XR FOOT RT COMPLETE from 04/16/2024 FINDINGS: 3 views No evidence of acute fracture or diastasis of the Lisfranc joint. Great toe metatarsophalangeal join t appears unremarkable. No pes planus. No inferior calcaneal spur nor calcaneal enthesophytes. With respect to the interphalangeal joint of the great toe, it appears unchanged from March 2024 images with the previously described degenerative changes on the medial aspect of this joint again noted as well as an adjacent independent corticated osseous density off the medial aspect of this joint appea ring unchanged and again elevating the skin at this level. IMPRESSION: No significant radiographic change compared to 04/16/2024 images DATA REPOSITORY: RADIATION DOSE DELIVERED:
== END 2025-03-05 00:55 ==
LOC: DI 00:35
PROVIDERS: PCP Nurse Practitioner Adult Health; Visit Provider Podiatrist
DX: M79.671 Pain in right foot (principal)
CPT/HCPCS: 73630

== ENCOUNTER 2025-04-23 11:46 | Outpatient (REF) | payer MEDICAID, SELFPAY ==
[2025-04-24 12:06] LABS: Chlamydia Result Negative (Negative); GC Result Negative (Negative)
== END 2025-04-23 11:47 | disposition home or self-care (01) ==
LOC: LBN 11:46
PROVIDERS: PCP Nurse Practitioner Adult Health; Visit Provider Nurse Practitioner Adult Health
DX: Z11.3 Encounter for screening for infections with a predominantly sexual mode of transmission (principal); N89.8 Other specified noninflammatory disorders of vagina; N94.10 Unspecified dyspareunia
CPT/HCPCS: 87491; 87591; 87480; 87510; 87660